=== PATIENT | female | born 2000 | race Caucasian/White ===

== ENCOUNTER → 2021-08-27 | Outpatient (CLI) | payer BC ==
[2021-08-27 09:13] LABS: Potassium 3.9 mmol/L (3.5-5.1)
[2021-08-27 09:22] LABS: Albumin 4.1 g/dL (3.4-5.0); BUN/Creatinine Ratio 10.1; Bilirubin, Total 0.6 mg/dL (0.2-1.0); Calcium 9.7 mg/dL (8.5-10.1)
[2021-08-27 09:49] LABS: Basophils # (auto) 0.1 10 ^3/uL (0-0.2); Basophils % (auto) 0.6 % (0.0-2.0); Eosinophils # (auto) 0.2 10 ^3/uL (0-0.8); Hematocrit 43.6 % (36.0-46.0); Hemoglobin 14.9 g/dL (12.2-16.2); Lymphocytes # (auto) 2.3 10 ^3/uL (0.4-5.4); Mean Corpuscular Hemoglobin 28.9 pg (28.0-32.0); Mean Corpuscular Hgb Conc. 34.3 g/dL (32.0-36.0); Mean Corpuscular Volume 84.4 fL (80.0-100.0); Monocytes # (auto) 0.7 10 ^3/uL (0-1.3); Monocytes % (auto) 6.7 % (0.0-12.0); Neutrophils # (auto) 6.8 10 ^3/uL (1.6-8.6); Neutrophils % (auto) 67.7 % (37.0-80.0); Nucleated Red Blood Cells % 0.1 %; Red Blood Cells 5.17 10^6/uL (4.0-5.20); White Blood Cell 10.1 10^3/uL (4.4-10.8)
== END | disposition home or self-care (01) ==
LOC: LAB 08:08
PROVIDERS: ATTEND Student in an Organized Health Care Education/Training Program
DX: Z00.00 Encounter for general adult medical examination without abnormal findings (principal); F33.2 Major depressive disorder, recurrent severe without psychotic features; F60.3 Borderline personality disorder
CPT/HCPCS: 36415; 80053; 80061; 80178; 83036; 84443; 85025

== ENCOUNTER → 2021-10-23 | Outpatient (CLI) | payer BC ==
[2021-10-23 13:22] LABS: Potassium 3.8 mmol/L (3.5-5.1)
[2021-10-23 13:29] LABS: Albumin 4.4 g/dL (3.4-5.0); Bilirubin, Total 0.6 mg/dL (0.2-1.0); Calcium 9.9 mg/dL (8.5-10.1); Total Protein 9.3 g/dL (6.4-8.2)
== END | disposition home or self-care (01) ==
LOC: LAB 12:34
PROVIDERS: ATTEND Student in an Organized Health Care Education/Training Program
DX: E03.9 Hypothyroidism, unspecified (principal)
CPT/HCPCS: 36415; 80053; 84439; 84443

== ENCOUNTER 2024-05-03 05:19 | Inpatient (IN) | payer BC, MEDICAID ==
[~2024-05-03] VITALS: Ht 160 cm; Wt 84.8 kg
[2024-05-03 06:34] LABS: Basophils # (auto) 0 10 ^3/uL (0-0.2); Basophils % (auto) 0.2 % (0.0-2.0); Eosinophils # (auto) 0 10 ^3/uL (0-0.8); Eosinophils % (auto) 0.2 % (0.0-7.0); Hematocrit 44.5 % (36.0-46.0); Hemoglobin 14.9 g/dL (12.2-16.2); Lymphocytes # (auto) 1.3 10 ^3/uL (0.4-5.4); Mean Corpuscular Hemoglobin 29.1 pg (28.0-32.0); Mean Corpuscular Hgb Conc. 33.4 g/dL (32.0-36.0); Monocytes # (auto) 0.7 10 ^3/uL (0-1.3); Monocytes % (auto) 6.2 % (0.0-12.0); Neutrophils # (auto) 9.6 10 ^3/uL (1.6-8.6); Neutrophils % (auto) 82.4 % (37.0-80.0); Platelet Count (auto) 321 10^3/uL (140-450); Red Blood Cells 5.11 10^6/uL (4.0-5.20); Red Cell Distribution Width 13.6 % (11.8-14.3); White Blood Cell 11.7 10^3/uL (4.4-10.8)
--- NOTE | 2024-05-03 06:39 | ECG ---
[facility] Test Date: 2024-05-03 Test Time: 05:30:54 Pat Name: CYNTHIA CARLTON Department: ED Room: 0295 Gender: F Sane Nurse: VALERI : 2000 Requested By: EMERGENCY EMERGENCY Order Number: [id number] Reading MD: Kamari Thomas Measurements Intervals [place] Rate: 81 P: 61 WA: 133 QRS: 34 QRSD: 88 T: 6 QT: 371 QTc: 431 Interpretive Statements Sinus rhythm Electronically Signed On 05-12-2024 12:53:58 PST by Kamari Thomas Please click the below link to view image of tracing.
[2024-05-03 06:48] LABS: Alanine Aminotransferase 787 U/L (7-40); Albumin 4.8 g/dL (3.2-4.8); Alkaline Phosphatase 135 U/L (46-116); Anion Gap 8 (5-15); Aspartate Aminotransferase 405 U/L (13-40); BUN/Creatinine Ratio 14.8 (10.0-20.0); Blood Urea Nitrogen 12 mg/dL (9-23); Calcium 10.4 mg/dL (8.7-10.4); Carbon Dioxide 26 mmol/L (20-31); Chloride 104 mmol/L (98-107); Glucose 101 mg/dL (74-106); Magnesium 2.2 mg/dL (1.6-2.6); Potassium 4.1 mmol/L (3.5-5.1); Sodium 138 mmol/L (136-145)
[2024-05-03 06:49] LABS: Bilirubin, Total 2.5 mg/dL (0.2-1.0); Total Protein 8.1 g/dL (5.7-8.2)
--- NOTE | 2024-05-03 07:15 | ED.PDOC ---
History of Present Illness HPI Comments 23 y/o F, with a Hx of anxiety, depression, obesity, and nicotine vape, is BIBA for c/o abdominal pain, nausea, vomiting, and hematemesis, today. Patient reports on unprovoked onset of constant abdominal pain with multiple nausea and vomiting episodes for the past 4 days, with 1x episode of hematemesis at 0300, this morning. Patient comments on recent positive test, last night, in addition to her current period being light and pink in coloration after missing her previous prior two periods. Patient reports no additional significant Hx along with any recent stress, sick contact, travel, spoiled food intake, substance use/exposure, injuries, or sexual activity. Patient denies having any diarrhea, blood-streaked stools, urinary symptoms, fever, chills, or other associated symptoms or modifiers at this time. Per EMS report, patient has a blood glucose of 113, with all remaining vitals within normal limits, on scene and was given Zofran en route. Chief Complaint: Abdominal Pain Time Seen by MD: 06:35 Reviewed Notes: Nurses Notes, Milk Bottler Notes, Medications, Allergies Allergies: Uncoded Allergies: ADHESIVES (Allergy, Unknown, 05/03/24) Information Source: Patient, Emergency Med Personnel Mode of Arrival: EMS Severity: Moderate Timing: Days Duration: Since onset Prehospital treatment: 12 Lead EKG, Accucheck (113), Stitch Bonder Machine Operator Helper, Treatment (Zofran ) Past Medical History PAST MEDICAL HISTORY: Anxiety, Depression Past Medical History (Other): obesity Surgical History: Denies all surgeries BIOLOGICAL PLANT OPERATOR History: Denies all BIOLOGICAL PLANT OPERATOR Hx Family History Family History: Unknown Social History Smoker: Other (nicotine vape) Alcohol: Denies ETOH Use Drugs: Denies Drug Use Lives In: Home Constitutional: denies: chills, diaphoresis, fatigue, fever, malaise, sweats, weakness, others EENTM: denies: blurred vision, double vision, ear bleeding, ear discharge, ear drainage, ear pain, ear ringing, eye pain, eye redness, hearing loss, mouth pain, mouth swelling, nasal discharge, nose bleeding, nose congestion, nose pain, photophobia, tearing, throat pain, throat swelling, voice changes, others Respiratory: denies: cough, hemoptysis, orthopnea, SOB at rest, shortness of breath, SOB with excertion, stridor, wheezing, others Cardiovascular: denies: chest pain, dizzy spells, diaphoresis, Dyspnea on exertion, edema, irregular heart beat, left arm pain, lightheadedness, palpitations, PND, syncope, others Gastrointestinal: reports: abdominal pain, hematemesis, nausea, vomiting; denies: abdomen distended, blood streaked bowels, constipated, diarrhea, dysphagia, difficulty swallowing, melena, poor appetite, poor fluid intake, rectal bleeding, rectal pain, others Genitourinary: denies: abnormal vagina bleeding, burning, dyspareunia, dysuria, flank pain, frequency, hematuria, incontinence, pain, , vagina disch arge, urgency, others Neurological: denies: dizziness, fainting, headache, left sided numbness, left sided weakness, numbness, paresthesia, pre-existing deficit, right sided numbness, right sided weakness, seizure, speech problems, tingling, tremors, weakness, others Musculoskeletal: denies: back pain, gout, joint pain, joint swelling, muscle pain, muscle stiffness, neck pain, others Integumetry: denies: bruises, change in color, change in hair/nails, dryness, laceration, lesions, lumps, rash, wounds, others Allergic/Immunocompromised: denies: Difficulty Healing, Frequent Infections, Hives, Itching, others Hematologic/Lymphatic: denies: anemia, blood clots, easy bleeding, easy bruising, swollen glands, others Endocrine: denies: excessive hunger, excessive sweating, excessive thirst, excessive urination, flushing, intolerance to cold, intolerance to heat, unexplained weight gain, unexplained weight loss, others Psychiatric: denies: anxiety, bipolar disorder, depression, hopeless, panic disorder, schizophrenia, sleepless, suicidal, others All Other Systems: Reviewed and Negative Physical Exam General Appearance: Moderate Distress HEENT: Normal ENT Inspection, Pharynx Normal, TMs Normal Neck: Full Range of Motion, Non-Tender, Normal, Normal Inspection Respiratory: Chest Non-Tender, Lungs Clear, No Accessory Muscle Use, No Respiratory Distress, Normal Breath Sounds Cardiovascular: No Edema, No JVD, No Murmur, No Gallop, Normal Peripheral Pulses, Regular Rate/Rhythm Breast Exam: Deferred Gastrointestinal: Diffuse, Soft Genitalia: Deferred Pelvic: Deferred Rectal: Deferred Extremities: No calf tenderness, Normal capillary refill, Normal inspection, Normal range of motion, Non-tender, No pedal edema Musculoskeletal : Apperance: Normal Neurologic: Alert, arboriculture instructor II-XII nml as Tested, No Motor Deficits, Normal Affect, Normal Mood, No Sensory Deficits Cerebellar Function: NOT DONE Reflexes: NOT DONE Skin: Dry, Normal Color, Warm Peripheral Pulses: 3+ Radial (R), 3+ Radial (L) Lymphatic: No Adenopathy Was a procedure done? Was a procedure done?: No EKG EKG : Pulse Rate (adult): 81 [place]: Normal Cardiac Rhythm: NSR Block: None Hypertrophy: None ST: Normal Differential Dx Considerations may include: , gastritis, gastroenteritis, appendicitis, diverticulitis, cholecystitis, cholelithiasis, nephrolithiasis, PUD, spoiled food, UTI, acute abdomen X-Ray, Labs, Meds, VS Vital Signs Date Time Temp Pulse Resp B/P (MAP) Pulse Ox O2 Delivery O2 Flow Rate FiO2 05/03/24 11:38 97.5 78 16 112/70 (84) 97 97.5 05/03/24 10:16 97.5 77 16 106/51 (69) 97 97.5 05/03/24 09:14 97.5 85 16 103/67 (79) 97 97.5 05/03/24 09:14 85 16 103/67 05/03/24 07:42 94 16 111/76 05/03/24 07:30 98.7 94 16 111/76 (88) 96 98.7 05/03/24 07:30 94 16 96 Room Air* 0 21 05/03/24 07:15 81 05/03/24 05:31 98.3 81 24 124/83 (97) 98 05/03/24 05:30 81 Lab Test 05/03/24 08:04 05/03/24 07:02 05/03/24 06:02 Range/Units Lactic Acid Level 1.0 0.4-2.0 mmol/L Troponin I High Sensitivity < 3 L < 3 L </=34 ng/L White Blood Count 11.7 H 4.4-10.8 10^3/uL Red Blood Count 5.11 4.0-5.20 10^6/uL Hemoglobin 14.9 12.2-16.2 g/dL Hematocrit 44.5 36.0-46.0 % Mean Corpuscular Volume 87.0 80.0-100.0 fL Mean Corpuscular Hemoglobin 29.1 28.0-32.0 pg Mean Corpuscular Hemoglobin Concent 33.4 32.0-36.0 g/dL Red Cell Distribution Width 13.6 11.8-14.3 % Platelet Count 321 140-450 10^3/uL Mean Platelet Volume 8.2 6.9-10.8 fL Neutrophils (%) (Auto) 82.4 H 37.0-80.0 % Lymphocytes (%) (Auto) 11.0 10.0-50.0 % Monocytes (%) (Auto) 6.2 0.0-12.0 % Eosinophils (%) (Auto) 0.2 0.0-7.0 % Basophils (%) (Auto) 0.2 0.0-2.0 % Neutrophils # (Auto) 9.6 H 1.6-8.6 10 ^3/uL Lymphocytes # (Auto) 1.3 0.4-5.4 10 ^3/uL Monocytes # (Auto) 0.7 0-1.3 10 ^3/uL Eosinophils # (Auto) 0 0-0.8 10 ^3/uL Basophils # (Auto) 0 0-0.2 10 ^3/uL Nucleated Red Blood Cells 0.0 % Sodium Level 138 136-145 mmol/L Potassium Level 4.1 3.5-5.1 mmol/L Chloride Level 104 98-107 mmol/L Carbon Dioxide Level 26 20-31 mmol/L Anion Gap 8 5-15 Blood Urea Nitrogen 12 9-23 mg/dL Creatinine 0.81 0.550-1.02 mg/dL Glomerular Filtration Rate Calc 105 >90 mL/min BUN/Creatinine Ratio 14.8 10.0-20.0 Serum Glucose 101 74-106 mg/dL Calcium Level 10.4 8.7-10.4 mg/dL Magnesium Level 2.2 1.6-2.6 mg/dL Total Bilirubin 2.5 H 0.2-1.0 mg/dL Aspartate Amino Transferase (AST) 405 H 13-40 U/L Alanine Aminotransferase (ALT) 787 H 7-40 U/L Alkaline Phosphatase 135 H 46-116 U/L Total Protein 8.1 5.7-8.2 g/dL Albumin 4.8 3.2-4.8 g/dL Lipase > 3500 H 12-53 U/L Beta HCG, Quantitative 0.4 L 1.5-4.2 mIU/mL Current Medications Medications (Trade) Dose Ordered Sig/Izzy Route Start Time Stop Time Status Last Admin Ceftriaxone Sodium 50 ml @ 100 mls/hr ONCE ONCE IV 05/03/24 07:30 05/03/24 07:59 DC 05/03/24 07:42 Metronidazole 100 ml @ 100 mls/hr ONCE ONCE IV 05/03/24 07:30 05/03/24 08:29 DC 05/03/24 08:11 Morphine Sulfate 4 mg ONCE ONCE IV 05/03/24 07:30 05/03/24 07:31 DC 05/03/24 07:42 Ondansetron HCl (Zofran) 4 mg ONCE ONCE IV 05/03/24 07:30 05/03/24 07:31 DC 05/03/24 07:42 Sodium Chloride 1,000 ml @ 1,000 mls/hr Q1H ONCE IV 05/03/24 07:30 05/03/24 08:29 DC 05/03/24 07:41 Sodium Chloride 1,000 ml @ 150 mls/hr Q6H40M ONCE IV 05/03/24 07:30 05/03/24 14:09 05/03/24 09:08 [place] [id number] Ph: [phone] DIAGNOSTIC IMAGING Diagnostic Imaging Report : [id number] Signed PATIENT: CYNTHIA CARLTON ACCT: [id number] UNIT: [id number] : 2000 LOC: ER ROOM / BED: / AGE / SEX: 23 / F ADM STATUS: REG ER SERVICE 4 ORDERING PHYSICIAN: BRAULIO FARNSWORTH MD PROCEDURE(s): GBUS - GALLBLADDER REASON: sharon ORDER NUMBER(s): [id number], ACCESSION NUMBER(s): [id number] ULTRASOUND ABDOMEN LIMITED INDICATION: Abdominal pain.. TECHNIQUE: Multiple real-time sonographic images of the abdomen were obtained. COMPARISON: None FINDINGS: The visualized liver parenchyma appears diffusely echogenic consistent with steatosis. . The liver measures 17.2 cm. No discrete hepatic lesion or intrahepatic biliary ductal dilatation is identified. There are multiple small subcentimeter mobile gallstones within the gallbladder. Is no significant gallbladder wall thickening or pericholecystic fluid. The common duct measures 7 mm. There is no obvious choledocholithiasis. The right kidney measures 10.5 cm length. No sonographic evidence of nephrolithiasis or hydronephrosis. Pancreas is obscured by bowel gas. IMPRESSION: 1. Hepatic steatosis. 2. Multiple small mobile gallstones in the gallbladder. 3. Mildly dilated common bile duct. There is no sonographic evidence of choledocholithiasis. HS:Y ATED BY: ERIK SMART MD DICTATED DATE/TIME: 05/03/24807 SIGNED BY: ERIK SMART MD SIGNED DATE/TIME: 05/03/24807 CC: Patient alert. Complaining of abdominal pain. Vitals stable. Answering all questions. Vomiting. Beta quant normal. Liver profile elevated. Acute cholecystitis. WBC elevated. Hemoglobin within normal limits. Establish intravenous access. Was given fluids. Was given Rocephin. Was given Flagyl. Explained to the patient. Continue cardiac monitoring. Time of 1ST Reevaluation: 07:05 Reevaluation 1ST: Unchanged Patient Education/Counseling: Diagnosis, Treatment Family Education/Counseling: No Family Present Departure 1 Departure Time of Disposition: 07:27 Impression: Primary Impression: Acute cholecystitis Disposition: ADMITTED INPATIENT Admit to: Med Surg Condition: Guarded Critical Care Note Critical Care Time?: Yes (45 min-critical care time only) Stability Stability form required: No Heart Score Heart Score: Heart Score Response (Comments) Value History N/A 0 EKG N/A 0 Age N/A 0 Risk Factors N/A 0 Troponin N/A 0 Total 0 I personally scribed for BRAULIO FARNSWORTH MD ([email or web address]) on 05/03/24 at 07:15. Electronically submitted by Chalo Allen ([email or web address]). I personally scribed for BRAULIO FARNSWORTH MD ([email or web address]) on 05/03/24 at 07:17. Electronically submitted by Chalo Allen ([email or web address]). I personally scribed for BRAULIO FARNSWORTH MD ([email or web address]) on 05/03/24 at 08:24. Electronically submitted by Chalo Allen ([email or web address]). I personally scribed for BRAULIO FARNSWORTH MD ([email or web address]) on 05/03/24 at 11:51. Electronically submitted by Chalo Allen ([email or web address]). BRAULIO FARNSWORTH MD May 03, 2024 07:15
[2024-05-03 07:30] VITALS: PULSE 94; RESP 16; O2SAT 96
[2024-05-03] MEDS: SODIUM CHLORIDE 0.9% 1,000 ML IV ONE ×2 (07:41→09:08)
[2024-05-03] MEDS: MORPHINE SULFATE 4 MG/ML SYR/VIAL IV ONE (07:42)
[2024-05-03] MEDS: ONDANSETRON HCL 4 MG/2 ML VIAL IV ONE (07:42)
[2024-05-03] MEDS: cefTRIAXone 1GM/50ML D5W 50 ML IV ONE (07:42)
--- NOTE | 2024-05-03 08:09 | DVH ---
ULTRASOUND ABDOMEN LIMITED INDICATION: Abdominal pain.. TECHNIQUE: Multiple real-time sonographic images of the abdomen were obtained. COMPARISON: None FINDINGS: The visualized liver parenchyma appears diffusely echogenic consistent with steatosis. . The liver measures 17.2 cm. No discrete hepatic lesion or intrahepatic biliary ductal dilatation is ident ified. There are multiple small subcentimeter mobile gallstones within the gallbladder. Is no significant ga llbladder wall thickening or pericholecystic fluid. The common duct measures 7 mm. There is no obvio us choledocholithiasis. The right kidney measures 10.5 cm length. No sonographic evidence of nephrolithiasis or hydronephro sis. Pancreas is obscured by bowel gas. IMPRESSION: 1. Hepatic steatosis. 2. Multiple small mobile gallstones in the gallbladder. 3. Mildly dilated common bile duct. There is no sonographic evidence of choledocholithiasis. HS:Y
[2024-05-03] MEDS: metroNIDAZOLE 500MG/100ML 100 ML IV ONE (08:11)
[2024-05-03 12:17] VITALS: BP 112/70; PULSE 78; RESP 16; TEMP 98.7; O2SAT 78
[2024-05-03] MEDS ORDERED: ACETAMINOPHEN 325 MG TAB PO PRN (15:15)
[2024-05-03] MEDS ORDERED: MORPHINE SULFATE INJ 2 MG/ml SYRG IV PRN ×2 (15:15→15:45)
[2024-05-03] MEDS ORDERED: DOCUSATE SOD 100 MG CAP PO PRN (15:15)
--- NOTE | 2024-05-03 15:34 | DVHHP2 ---
History of Present Illness Reason for Visit: Acute pancreatitis History of Present Illness The patient is a 23-year-old female morbidly obese with past medical history of anxiety and depression who presented to [facility] ED with complaint of acute abdominal pain. Patient reports symptoms progressively get worse with nausea, episodes of vomiting, hematemesis, getting worse today that prompted this visit. Patient reports on recent positive test, last night, in addition to her current period being light and pink in coloration after missing her previous prior two periods. Patient was seen and evaluated in the ED, laboratory data shows WBC 11.7, platelets 321, sodium 138, potassium 4.1, BUN 12, creatinine 0.81, glucose 101, troponin 3, total bilirubin 2.5, AST 405, ALT 787, lipase > 12021, blood pressure 112/70, heart rate 78, temperature 98.7 F, O2 saturation 97% on room air. Gallbladder ultrasound revealing hepatic steatosis, multiple small mobile gallstones in the gallbladder. MRCP revealing cholelithiasis; mild intrahepatic and extrahepatic biliary dilatation is nonspecific, no choledocholithiasis, correlate with serum bilirubin. Patient was started on IV antibiotic regimen Rocephin, please see medication orders section in the computer. On my assessment, patient denies chest pain, no headache, no dizziness, no shortness of breath, no abdominal pain, nausea or vomiting at this moment, no diarrhea, no fever, no chills. No other modifying factor or other associated signs and symptoms noted. Patient was admitted for further evaluation and medical management. Past Medical History Anxiety, Depression, Obesity Past Surgical History Denies all surgeries Family History Reviewed, noncontributory to the management of this case. Past Social History The patient lives at home, denies smoking, alcohol or illicit drugs abuse. Review of Systems Constitutional: No: Fever, Chills, Sweats, Weakness, Malaise, Other Eyes: No: Pain, Vision change, Conjunctivae inflammation, Eyelid inflammation, Other, Redness ENT: No: Ear pain, Ear discharge, Nose pain, Nose discharge, Nose congestion, Mouth pain, Mouth swelling, Throat pain, Throat swelling, Other Respiratory: No: Cough, Dry, Shortness of breath, SOB with excertion, Wheezing, Hemoptysis, Pleuritic Pain, Sputum, Wheezing, Other Cardiovascular: No: Chest Pain, Palpitations, Orthopnea, Paroxysmal Noc. Dyspnea, Edema, Lt Headedness, Other Gastrointestinal: Nausea, Vomiting, Abdominal Pain, Other (Hematemesis); No: Diarrhea, Constipation, Melena, Hematochezia Genitourinary: No Dysuria, No Frequency, No Incontinence, No Hematuria, No Retention, No Other Musculoskeletal: No: other, neck pain, shoulder pain, arm pain, back pain, hand pain, leg pain, foot pain Skin: No: Rash, Lesions, Jaundice, Bruising, Other Neurological: No: Weakness, Numbness, Incoordination, Change in speech, Confusion, Seizures, Other Allergies: Uncoded Allergies: ADHESIVES (Allergy, Unknown, 05/03/24) Medications Current Medications Medications Dose Ordered Sig/Izzy Route Start Time Stop Time Status Last Admin Dose Admin Metronidazole 100 ml @ 100 mls/hr Q8HR IV 05/03/24 22:00 UNV Ceftriaxone Sodium 50 ml @ 100 mls/hr DAILY@09 IV 05/04/24 09:00 UNV Acetaminophen/ Hydrocodone Bitart 1 tab Q4HP PRN PO 05/03/24 15:15 UNV Ondansetron HCl 4 mg Q4HP PRN IV 05/03/24 15:15 UNV Docusate Sodium 100 mg BIDPRN PRN PO 05/03/24 15:15 UNV Morphine Sulfate 2 mg Q4HPRN PRN IV 05/03/24 15:15 UNV Ibuprofen 600 mg Q6HP PRN PO 05/03/24 15:15 UNV Exam Vital Signs Vital Signs Date Time Temp Pulse Resp B/P (MAP) Pulse Ox O2 Delivery O2 Flow Rate FiO2 05/03/24 15:28 97.5 84 17 100/69 (79) 95 97.5 05/03/24 07:30 Room Air* 0 21 General Appearance: Alert, Oriented X3, Cooperative, No acute distress HEENT: Atraumatic, PERRLA, EOMI, Mucous membr. moist/pink Respiratory: Clear to auscultation, Normal air movement Cardiovascular: Regular rate, Normal S1, Normal S2, No murmurs Abdominal: Normal bowel sounds, Soft, No hepatospenomegaly, No masses, Other (Reports tenderness) Extremities: No clubbing, No cyanosis, No edema, Normal pulses, No tenderness/swelling Skin: No rashes, No breakdown, No significant lesion Neuro: Normal gait, Normal speech, Strength at 5/5 X4 ext, Normal tone, Sensation intact, Cranial nerves 3-12 NL, Reflexes 2+ Psych/Mental Status: Mental status NL, Mood NL Labs/Xrays Labs Test 05/03/24 08:04 05/03/24 07:02 05/03/24 06:02 Range/Units Lactic Acid Level 1.0 0.4-2.0 mmol/L Troponin I High Sensitivity < 3 L </=34 ng/L White Blood Count 11.7 H 4.4-10.8 10^3/uL Red Blood Count 5.11 4.0-5.20 10^6/uL Hemoglobin 14.9 12.2-16.2 g/dL Hematocrit 44.5 36.0-46.0 % Mean Corpuscular Volume 87.0 80.0-100.0 fL Mean Corpuscular Hemoglobin 29.1 28.0-32.0 pg Mean Corpuscular Hemoglobin Concent 33.4 32.0-36.0 g/dL Red Cell Distribution Width 13.6 11.8-14.3 % Platelet Count 321 140-450 10^3/uL Mean Platelet Volume 8.2 6.9-10.8 fL Neutrophils (%) (Auto) 82.4 H 37.0-80.0 % Lymphocytes (%) (Auto) 11.0 10.0-50.0 % Monocytes (%) (Auto) 6.2 0.0-12.0 % Eosinophils (%) (Auto) 0.2 0.0-7.0 % Basophils (%) (Auto) 0.2 0.0-2.0 % Neutrophils # (Auto) 9.6 H 1.6-8.6 10 ^3/uL Lymphocytes # (Auto) 1.3 0.4-5.4 10 ^3/uL Monocytes # (Auto) 0.7 0-1.3 10 ^3/uL Eosinophils # (Auto) 0 0-0.8 10 ^3/uL Basophils # (Auto) 0 0-0.2 10 ^3/uL Nucleated Red Blood Cells 0.0 % Sodium Level 138 136-145 mmol/L Potassium Level 4.1 3.5-5.1 mmol/L Chloride Level 104 98-107 mmol/L Carbon Dioxide Level 26 20-31 mmol/L Anion Gap 8 5-15 Blood Urea Nitrogen 12 9-23 mg/dL Creatinine 0.81 0.550-1.02 mg/dL Glomerular Filtration Rate Calc 105 >90 mL/min BUN/Creatinine Ratio 14.8 10.0-20.0 Serum Glucose 101 74-106 mg/dL Calcium Level 10.4 8.7-10.4 mg/dL Magnesium Level 2.2 1.6-2.6 mg/dL Total Bilirubin 2.5 H 0.2-1.0 mg/dL Aspartate Amino Transferase (AST) 405 H 13-40 U/L Alanine Aminotransferase (ALT) 787 H 7-40 U/L Alkaline Phosphatase 135 H 46-116 U/L Total Protein 8.1 5.7-8.2 g/dL Albumin 4.8 3.2-4.8 g/dL Lipase > 3500 H 12-53 U/L Beta HCG, Quantitative 0.4 L 1.5-4.2 mIU/mL PATIENT: CYNTHIA CARLTON ACCT: [id number] UNIT: [id number] : 2000 LOC: ER ROOM / BED: / AGE / SEX: 23 / F ADM STATUS: REG ER SERVICE 0725 ORDERING PHYSICIAN: BRAULIO FARNSWORTH MD PROCEDURE(s): GBUS - GALLBLADDER REASON: sharon ORDER NUMBER(s): [id number], ACCESSION NUMBER(s): [id number] ULTRASOUND ABDOMEN LIMITED INDICATION: Abdominal pain.. TECHNIQUE: Multiple real-time sonographic images of the abdomen were obtained. COMPARISON: None FINDINGS: The visualized liver parenchyma appears diffusely echogenic consistent with steatosis. The liver measures 17.2 cm. No discrete hepatic lesion or intrahepatic biliary ductal dilatation is identified. There are multiple small subcentimeter mobile gallstones within the gallbladder. Is no significant gallbladder wall thickening or pericholecystic fluid. The common duct measures 7 mm. There is no obvious choledocholithiasis. The right kidney measures 10.5 cm length. No sonographic evidence of nephrolithiasis or hydronephrosis. Pancreas is obscured by bowel gas. IMPRESSION: 1. Hepatic steatosis. 2. Multiple small mobile gallstones in the gallbladder. 3. Mildly dilated common bile duct. There is no sonographic evidence of choledocholithiasis. ORDERING PHYSICIAN: JOSEF BOUCHER PROCEDURE(s): MRCP - MRCP MRI REASON: CHOLELITHASIS WITH CBD DILATION ORDER NUMBER(s): [id number], ACCESSION NUMBER(s): [id number] MRI Abdomen, without IV Contrast Exam Date: 05/03/2024 03:44 PM Comparison: None History: CHOLELITHASIS WITH CBD DILATION Technique: Multisequence multiplanar MRI images were obtained of the abomen. MRCP including 3D SPACE, Radial 3D slabs and SPACE 3D MIP images. Findings: Liver: The liver is normal in size without focal lesions. Normal liver contour. Spleen: Unremarkable. Pancreas: The pancreas is normal in appearance without focal lesions. Gallbladder and ducts: Cholelithiasis noted without secondary findings of cholecystitis or biliary obstruction. Common bile duct is mildly dilated measuring up to 8 mm. Mild intrahepatic biliary dilation. The pancreatic duct is within normal limits. Adrenal glands: Unremarkable. Kidneys: Normal enhancement without suspicious lesions or hydronephrosis. Visualized bowel: Grossly unremarkable. Vasculature: Unremarkable. Lymphadenopathy: No evidence for lymphadenopathy. Ascites: Absent. Musculoskeletal: Bone marrow signal is normal. IMPRESSION: 1. Cholelithiasis. Mild intrahepatic and extrahepatic biliary dilation is nonspecific. No choledocholithiasis. Correlate with serum bilirubin. Assessment/Plan Assessment/Plan Cholelithiasis Acute abdominal pain Acute pancreatitis Elevated liver enzymes Leukocytosis, unspecified Intractable nausea and vomiting Plan 1. Admit to med surge unit 2. Breathing treatment 3. Pain control management 4. IV antibiotic management 5. Management of fluids and electrolytes 6. Consultation for GI/hospitalist 7. Diagnostic test gallbladder ultrasound 8. DVT prophylaxis on SCDs 9. Repeat labs CBC, CMP in a.m. 10. Continue with current medical management 11. Treatment plan discussed with patient and RN. Patient verbalized understanding. Plan discussed with: Patient, Other (RN) My Orders Orders - LUANA GARSIA DNP Procedure Category Date Status Time Metronidazole PHA 05/03/24 Logged 500mg/100ml (Flagyl 22:00 Ceftriaxone 1gm/50ml PHA 05/04/24 Logged D5w (Rocephin) 09:00 * Gi Dvh Equipment Monitor Phototypesetting CONS 05/03/24 Transmitted 15:12 Allergies RACHEL 05/03/24 In Process 15:12 Code Status CODE 05/03/24 Transmitted 15:12 Oxygen Per Hour RT 11/12/24 Transmitted 15:12 Hydrocodone-Acet PHA 05/03/24 Logged 5/325mg Tab ([place] 15:15 Ondansetron Hcl PHA 05/03/24 Logged (Zofran) 15:15 Docusate Sodium PHA 05/03/24 Logged Capsule (Colace 15:15 Complete Blood Count LAB 05/04/24 Verified 04:00 Comprehensive LAB 05/04/24 Verified Metabolic Panel 04:00 Condition: Serious RACHEL 05/03/24 In Process 15:12 Clear Liq Diet DIET 05/03/24 Transmitted Dinner Bedrest With Bathroom [facility] 05/03/24 In Process Privileg 15:12 Morphine Sulfate PHA 05/03/24 Logged Injection 15:15 Ibuprofen Tablet PHA 05/03/24 Logged (Motrin Tablet) 15:15 Problem List: (1) Cholelithiasis (2) Acute abdominal pain (3) Leukocytosis, unspecified (4) Acute pancreatitis (5) Elevated liver enzymes (6) Intractable nausea and vomiting Date of Service: May 03, 2024 Billing Provider: LUANA GARSIA DNP Common Visit Codes: 02930-HXPNOGS INP/OBS CARE (HIGH) LUANA GARSIA DNP May 03, 2024 15:34
[2024-05-03] MEDS ORDERED: NITROGLYCERIN 0.4 MG SL TAB SL PRN (15:45)
--- NOTE | 2024-05-03 16:44 | DVH ---
MRI Abdomen, without IV Contrast Exam Date: 05/03/2024 03:44 PM Comparison: None History: CHOLELITHASIS WITH CBD DILATION Technique: Multisequence multiplanar MRI images were obtained of the abomen. MRCP including 3D SPACE, Radial 3D slabs and SPACE 3D MIP images. Findings: Liver: The liver is normal in size without focal lesions. Normal liver contour. Spleen: Unremarkable. Pancreas: The pancreas is normal in appearance without focal lesions. Gallbladder and ducts: Cholelithiasis noted without secondary findings of cholecystitis or biliary ob struction. Common bile duct is mildly dilated measuring up to 8 mm. Mild intrahepatic biliary dilati on. The pancreatic duct is within normal limits. Adrenal glands: Unremarkable. Kidneys: Normal enhancement without suspicious lesions or hydronephrosis. Visualized bowel: Grossly unremarkable. Vasculature: Unremarkable. Lymphadenopathy: No evidence for lymphadenopathy. Ascites: Absent. Musculoskeletal: Bone marrow signal is normal. IMPRESSION: 1. Cholelithiasis. Mild intrahepatic and extrahepatic biliary dilation is nonspecific. No choledochol ithiasis. Correlate with serum bilirubin.. HS:Erich
[2024-05-03 17:25] LABS: Urine Bacteria FEW /hpf (None Seen); Urine Blood 1+ /uL (Negative); Urine Clarity Turbid (Clear); Urine Color Dark-Yellow (Yellow); Urine Protein, UAD TRACE (Negative); Urine Specific Gravity 1.029 (1.001-1.035); Urine Urobilinogen 2 mg/dL (Negative); Urine WBC 8 /hpf (0 - 5); Urine pH 6.5 (5.0-9.0)
[2024-05-03] MEDS: HYDROcodone-ACET 5/325MG TAB PO PRN (18:53)
[2024-05-03 20:16] VITALS: PULSE 98; RESP 16; O2SAT 98
[2024-05-03] MEDS: ONDANSETRON HCL 4 MG/2 ML VIAL IV PRN (21:48)
[2024-05-03] MEDS: metroNIDAZOLE 500MG/100ML 100 ML IV SCH (22:24)
[2024-05-03 23:00] VITALS: BP 112/73; PULSE 79; RESP 20; TEMP 97.7; O2SAT 98
[2024-05-04] VITALS (7 sets, daily range): BP systolic 90–121; BP diastolic 39–74; PULSE 67–101; RESP 18–20; TEMP 97.4–98.5; O2SAT 94–100
[2024-05-04 07:34] LABS: Basophils # (auto) 0 10 ^3/uL (0-0.2); Basophils % (auto) 0.3 % (0.0-2.0); Eosinophils # (auto) 0.3 10 ^3/uL (0-0.8); Eosinophils % (auto) 3.5 % (0.0-7.0); Hematocrit 40.8 % (36.0-46.0); Hemoglobin 13.9 g/dL (12.2-16.2); Lymphocytes # (auto) 1.6 10 ^3/uL (0.4-5.4); Lymphocytes % (auto) 22.1 % (10.0-50.0); Mean Corpuscular Hemoglobin 29.7 pg (28.0-32.0); Mean Corpuscular Volume 87.6 fL (80.0-100.0); Monocytes # (auto) 0.5 10 ^3/uL (0-1.3); Monocytes % (auto) 6.9 % (0.0-12.0); Neutrophils % (auto) 67.2 % (37.0-80.0); Nucleated Red Blood Cells % 0.1 %; Platelet Count (auto) 241 10^3/uL (140-450); Red Blood Cells 4.66 10^6/uL (4.0-5.20); Red Cell Distribution Width 13.7 % (11.8-14.3); White Blood Cell 7.5 10^3/uL (4.4-10.8)
[2024-05-04 07:42] LABS: Amphetamine Screen, Urine Neg (NEGATIVE); Barbiturate Scree,Urine Neg (NEGATIVE); Benzodiazephine Screen, Urine Neg (NEGATIVE); Cannabinoid Screen, Urine Neg (NEGATIVE); Cocaine Screen, Urine Neg (NEGATIVE); Opiate Scree,Urine Pos (NEGATIVE); Phencyclidine Screen, Urine Neg (NEGATIVE)
[2024-05-04 07:45] LABS: Alanine Aminotransferase 481 U/L (7-40); Alkaline Phosphatase 111 U/L (46-116); Calcium 9.4 mg/dL (8.7-10.4); Carbon Dioxide 20 mmol/L (20-31); Chloride 109 mmol/L (98-107); Glucose 81 mg/dL (74-106); LDL Cholesterol 76 mg/dL (< 100); Potassium 4.1 mmol/L (3.5-5.1); Triglycerides 93 mg/dL (< 150)
[2024-05-04 07:46] LABS: Albumin 4.2 g/dL (3.2-4.8); Anion Gap 9 (5-15); Aspartate Aminotransferase 144 U/L (13-40); BUN/Creatinine Ratio 9.8 (10.0-20.0); Bilirubin, Total 1.7 mg/dL (0.2-1.0); Blood Urea Nitrogen 6 mg/dL (9-23); Cholesterol 121 mg/dL (< 200); HDL Cholesterol 28 mg/dL (40-59); Sodium 138 mmol/L (136-145); Total Protein 7.4 g/dL (5.7-8.2)
[2024-05-04] MEDS: cefTRIAXone 1GM/50ML D5W 50 ML IV SCH (09:13)
--- NOTE | 2024-05-04 09:56 | DVHINCON2 ---
Date of service: May 04, 2024 Referring Physician Vince Wei Reason for Consultation Acute pancreatitis History of Present Illness The patient is a 23-year-old female morbidly obese with past medical history of anxiety and depression who presented to [facility] ED with complaint of acute abdominal pain. Patient reports symptoms progressively get worse with nausea, episodes of vomiting, hematemesis, getting worse today that prompted this visit. Patient reports on recent positive test, last night, in addition to her current period being light and pink in coloration after missing her previous prior two periods. Patient was seen and evaluated in the ED, laboratory data shows WBC 11.7, platelets 321, sodium 138, potassium 4.1, BUN 12, creatinine 0.81, glucose 101, troponin 3, total bilirubin 2.5, AST 405, ALT 787, lipase > 18327, blood pressure 112/70, heart rate 78, temperature 98.7 F, O2 saturation 97% on room air. Gallbladder ultrasound revealing hepatic steatosis, multiple small mobile gallstones in the gallbladder. MRCP revealing cholelithiasis; mild intrahepatic and extrahepatic biliary dilatation is nonspecific, no choledocholithiasis, correlate with serum bilirubin. Patient was started on IV antibiotic regimen Rocephin, Patient was seen at bedside and was resting comfortably. Her abdominal pain was improving and does no nausea vomiting at this time Past Medical History Past Medical History Anxiety, Depression, Obesity Past Surgical History Past Surgical History Denies all surgeries Family History: FH: skin cancer G8 FATHER Allergies: Uncoded Allergies: ADHESIVES (Allergy, Unknown, 05/03/24) Current Medications Current Medications Medications (Trade) Dose Ordered Sig/Izzy Route PRN Reason Start Time Stop Time Status Last Admin Metronidazole 100 ml @ 100 mls/hr Q8HR IV 05/03/24 22:00 05/04/24 05:23 Ceftriaxone Sodium 50 ml @ 100 mls/hr DAILY@09 IV 05/04/24 09:00 05/04/24 09:13 Acetaminophen/ Hydrocodone Bitart ([place] 5/325MG Tab) 1 tab Q4HP PRN PO MODERATE PAIN (4-6 PAIN SCALE) 05/03/24 15:15 05/03/24 18:53 Ondansetron HCl (Zofran) 4 mg Q4HP PRN IV NAUSEA / VOMITING 05/03/24 15:15 05/03/24 21:48 Docusate Sodium (Colace Capsule) 100 mg BIDPRN PRN PO FOR CONSTIPATION 05/03/24 15:15 Acetaminophen (Tylenol Tablet) 650 mg Q6HP PRN PO PAIN SCALE 1-3 OR TEMP>100.4 05/03/24 15:15 05/03/24 15:16 DC Morphine Sulfate 2 mg Q4HPRN PRN IV SEVERE PAIN (7-10 PAIN SCALE) 05/03/24 15:15 Ibuprofen (Motrin Tablet) 600 mg Q6HP PRN PO PAIN SCALE 1-3 OR TEMP>100.4 05/03/24 15:15 Nitroglycerin (Ntrostat Sublingual) 0.4 mg Q5MINP PRN SL FOR CHEST PAIN 05/03/24 15:45 Morphine Sulfate 2 mg Q30M PRN IV FOR CHEST PAIN 05/03/24 15:45 Lactated Ringer's 1,000 ml @ 125 mls/hr Q8H IV 05/04/24 08:45 Vital Signs Vital Signs Date Time Temp Pulse Resp B/P (MAP) Pulse Ox O2 Delivery O2 Flow Rate FiO2 05/04/24 09:04 97.4 77 19 96/50 (65) 98 97.4 05/03/24 23:00 Room Air* 0 21 Physical Exam General Appearance: Alert, Oriented X3, Cooperative, No acute distress HEENT: Atraumatic, PERRLA, EOMI, Mucous membr. moist/pink Respiratory: Clear to auscultation, Normal air movement Cardiovascular: Regular rate, Normal S1, Normal S2, No murmurs Abdominal: Normal bowel sounds, Soft, No hepatospenomegaly, No masses, Other (Reports tenderness) Extremities: No clubbing, No cyanosis, No edema, Normal pulses, No tenderness/swelling Skin: No rashes, No breakdown, No significant lesion Neuro: Normal gait, Normal speech, Strength at 5/5 X4 ext, Normal tone, Sensation intact, Cranial nerves 3-12 NL, Reflexes 2+ Psych/Mental Status: Mental status NL, Mood NL Labs/Diagnostic Data Labs Test 05/04/24 06:54 05/03/24 16:47 05/03/24 08:04 05/03/24 07:02 Range/Units White Blood Count 7.5 # 4.4-10.8 10^3/uL Red Blood Count 4.66 4.0-5.20 10^6/uL Hemoglobin 13.9 12.2-16.2 g/dL Hematocrit 40.8 36.0-46.0 % Mean Corpuscular Volume 87.6 80.0-100.0 fL Mean Corpuscular Hemoglobin 29.7 28.0-32.0 pg Mean Corpuscular Hemoglobin Concent 34.0 32.0-36.0 g/dL Red Cell Distribution Width 13.7 11.8-14.3 % Platelet Count 241 140-450 10^3/uL Mean Platelet Volume 8.0 6.9-10.8 fL Neutrophils (%) (Auto) 67.2 37.0-80.0 % Lymphocytes (%) (Auto) 22.1 10.0-50.0 % Monocytes (%) (Auto) 6.9 0.0-12.0 % Eosinophils (%) (Auto) 3.5 0.0-7.0 % Basophils (%) (Auto) 0.3 0.0-2.0 % Neutrophils # (Auto) 5.0 1.6-8.6 10 ^3/uL Lymphocytes # (Auto) 1.6 0.4-5.4 10 ^3/uL Monocytes # (Auto) 0.5 0-1.3 10 ^3/uL Eosinophils # (Auto) 0.3 0-0.8 10 ^3/uL Basophils # (Auto) 0 0-0.2 10 ^3/uL Nucleated Red Blood Cells 0.1 % Sodium Level 138 136-145 mmol/L Potassium Level 4.1 3.5-5.1 mmol/L Chloride Level 109 H 98-107 mmol/L Carbon Dioxide Level 20 20-31 mmol/L Anion Gap 9 5-15 Blood Urea Nitrogen 6 L 9-23 mg/dL Creatinine 0.61 0.550-1.02 mg/dL Glomerular Filtration Rate Calc 130 >90 mL/min BUN/Creatinine Ratio 9.8 L 10.0-20.0 Serum Glucose 81 74-106 mg/dL Calcium Level 9.4 8.7-10.4 mg/dL Total Bilirubin 1.7 H 0.2-1.0 mg/dL Aspartate Amino Transferase (AST) 144 H 13-40 U/L Alanine Aminotransferase (ALT) 481 H 7-40 U/L Alkaline Phosphatase 111 46-116 U/L Total Protein 7.4 5.7-8.2 g/dL Albumin 4.2 3.2-4.8 g/dL Triglycerides Level 93 < 150 mg/dL Cholesterol Level 121 < 200 mg/dL LDL Cholesterol 76 < 100 mg/dL HDL Cholesterol 28 L 40-59 mg/dL Lipase 961 H 12-53 U/L Urine Color Dark-yellow Yellow Urine Clarity Turbid H Clear Urine pH 6.5 5.0-9.0 Urine Specific [place] 1.029 1.001-1.035 Urine Protein Trace H Negative Urine Ketones 3+ H Negative Urine Blood 1+ H Negative /uL Urine Nitrite Negative Negative Urine Bilirubin 1+ H Negative Urine Urobilinogen 2 H Negative mg/dL Urine Leukocyte Esterase Negative Negative /uL Urine RBC 7 0 - 4 /hpf Urine WBC 8 0 - 5 /hpf Urine Squamous Epithelial Cells Mod <5 /hpf Urine Bacteria Few H None Seen /hpf Urine Glucose Normal Normal mg/dL Urine Opiates Screen Pos NEGATIVE Urine Fentanyl Screen Neg NEGATIVE Urine Barbiturates Screen Neg NEGATIVE Urine Phencyclidine Screen Neg NEGATIVE Urine Amphetamines Screen Neg NEGATIVE Urine Benzodiazepines Screen Neg NEGATIVE Urine Cocaine Screen Neg NEGATIVE Urine Cannabinoids Screen Neg NEGATIVE Lactic Acid Level 1.0 0.4-2.0 mmol/L Troponin I High Sensitivity < 3 L </=34 ng/L Test 05/03/24 06:02 Range/Units Magnesium Level 2.2 1.6-2.6 mg/dL Beta HCG, Quantitative 0.4 L 1.5-4.2 mIU/mL Microbiology Date/Time Source Procedure Growth Status 05/03/24 08:04 Blood Blood Culture - Preliminary NO GROWTH AFTER 24 HOURS OF INCUBATION. Resulted MRCP IMPRESSION: 1. Cholelithiasis. Mild 8mm intrahepatic and extrahepatic biliary dilation is nonspecific. No choledocholithiasis. Correlate with serum bilirubin.. Problems(with codes): (1) Gallstone pancreatitis (2) Cholelithiasis (3) Acute pancreatitis (4) Acute abdominal pain (5) Leukocytosis, unspecified (6) Intractable nausea and vomiting (7) Elevated liver enzymes (8) Acute cholecystitis Plan/Recommendation Plan Her leukocytosis is improving and lipase levels are trending down Her liver enzymes are improving Patient likely had a passage of a small CBD stone leading to gallstone pancreatitis which is improving Continue to monitor labs IV fluid hydration IV antibiotics Surgical consult to discuss elective cholecystectomy Clear liquid diet Plan discussed with: Patient, Other (Nurse) ANALIA WEBBER MD May 04, 2024 09:55
[2024-05-04] MEDS: LACTATED RINGER'S 1,000 ML IV SCH (10:57)
--- NOTE | 2024-05-04 18:24 | DVHPNRES ---
Progress Note Date Seen: May 04, 2024 Resident Creating Document: FÉLIX RIOS RESIDENT Medical Necessity Reason Pt with a Central, PICC or Fol: No Subjective Review of Systems Patient is 23 years old female with past medical history of obesity, anxiety, bipolar disorder, borderline personality disorder, PTSD, ADHD, insomnia came with a complaint of abdominal pain started 4 days ago. Starting having upper abdominal pain that started 5 days ago, 10, 9/10, aggravated with food, relieved with empty stomach, no radiation. Patient also endorsed nausea and vomiting 7 times at the 1st day, and followed couple of times other days. Vomiting was mostly food and watery content, denied any blood. Patient also complained of dysuria but no urgency or hesitancy. Denied any chest pain, shortness of breath, constipation or diarrhea, fever, cough, palpitation, dysarthria, change in vision, rash. Initial lab workup revealed> lipase 3500, WBC 11.7, serum bilirubin 2.5, AST for 0 5, ALT 787, alkaline phosphatase 135. Ultrasound Of the gallbladder revealed-Hepatic steatosis. Multiple small mobile gallstones in the gallbladder. Mildly dilated common bile duct. There is no sonographic evidence of choledocholithiasis. MRCP revealed- Cholelithiasis. Mild intrahepatic and extrahepatic biliary dilation is nonspecific. No choledocholithiasis. Correlate with serum bilirubin. PMH-obesity, anxiety, bipolar disorder, borderline personality disorder, PTSD, ADHD, insomnia PSH- none Allergy- smokes vape, alcoholic intake only very few occasion last time to calculus 3 months before. Denies drugs. Personal History/ Social History- Patient was seen today at the bedside. Patient nausea after drinking liquid. Cardiovascular- deny acute chest , dysarthria. or cough or palpitation Respiratory- denies cough or short of breath or wheezing Gastrointestinal- denies any rectal bleeding, nausea or vomiting Musculoskeletal-denies acute joint swelling or tenderness or redness Neurological- denies acute dysarthria, dysphagia, change in vision Psychiatry- denies depression or SI or HI Skin- denies acute rash or purpura Patient was seen today for clinical evaluation. Less than chart reviewed. Patient complained of mild nausea after drinking liquid diet. We will check tenderness present on physical examination. Patient was seen by Gastroenterology. Recommendation reviewed and appreciated. Gastroenterology recommended for IV hydration, IV antibiotics, to consult surgery for further evaluation and care. Objective vital signs Vital Sign Date Time Temp Pulse Resp B/P (MAP) Pulse Ox O2 Delivery O2 Flow Rate FiO2 05/04/24 17:12 98.3 67 18 90/39 (56) 98 98.3 05/04/24 08:00 Room Air* 0 21 Total Intake and Output 05/03/24 05/03/24 05/04/24 15:00 23:00 07:00 Intake Total 1900 ml Balance 1900 ml medications Current Medications Medications Dose Ordered Sig/Izzy Route Start Time Stop Time Status Last Admin Dose Admin Metronidazole 100 ml @ 100 mls/hr Q8HR IV 05/03/24 22:00 05/04/24 15:54 100 MLS/HR Ceftriaxone Sodium 50 ml @ 100 mls/hr DAILY@09 IV 05/04/24 09:00 05/04/24 09:13 100 MLS/HR Acetaminophen/ Hydrocodone Bitart 1 tab Q4HP PRN PO 05/03/24 15:15 05/03/24 18:53 1 TAB Ondansetron HCl 4 mg Q4HP PRN IV 05/03/24 15:15 05/03/24 21:48 4 MG Docusate Sodium 100 mg BIDPRN PRN PO 05/03/24 15:15 Morphine Sulfate 2 mg Q4HPRN PRN IV 05/03/24 15:15 Ibuprofen 600 mg Q6HP PRN PO 05/03/24 15:15 Nitroglycerin 0.4 mg Q5MINP PRN SL 05/03/24 15:45 Morphine Sulfate 2 mg Q30M PRN IV 05/03/24 15:45 Lactated Ringer's 1,000 ml @ 125 mls/hr Q8H IV 05/04/24 08:45 05/04/24 10:57 125 MLS/HR Famotidine 20 mg Q12HR IV 05/04/24 22:00 Examination General examination- awake, alert, oriented, conversant HEENT- PEERLA, no acute nasal discharge Cardiovascular- S1-S2 audible, rate and rhythm regular, no murmur Respiratory- CTAB, no wheeze or rhonchi Gastrointestinal-abdomen tender++, bowel sound+. Nondistended Musculoskeletal-no acute joint swelling or tenderness or redness# Lower extremity- no leg edema Neurological- cranial nerves intact, no acute dysarthria or dysphagia Psychiatry- denies depression or SI or HI Skin- no acute rash or purpura laboratory and microbiology Laboratory Tests 05/04/24 06:54 Test 05/04/24 06:54 Range/Units Serum Glucose 81 74-106 mg/dL Microbiology Date/Time Source Procedure Growth Status 05/03/24 08:04 Blood Blood Culture - Preliminary NO GROWTH AFTER 24 HOURS OF INCUBATION. Resulted Problem List/Assessment/Plan Problem List/Assessment/Plan # acute abdominal pain likely due to acute gallstone pancreatitis,, cholelithiasis -lipase -Ultrasound Of the gallbladder revealed-Hepatic steatosis. Multiple small mobile gallstones in the gallbladder. Mildly dilated common bile duct. There is no sonographic evidence of choledocholithiasis. - MRCP revealed- Cholelithiasis. Mild intrahepatic and extrahepatic biliary dilation is nonspecific. No choledocholithiasis. Correlate with serum bilirubin. -continue IV fluid lactate Ringer solution 125 mL/hour -NPO until further order -continue pain medication as prescribed -monitor CBC, CMP, magnesium, lipase - # intractable nausea and vomiting likely due to acute gallstone pancreatitis,, cholelithiasis --Ultrasound Of the gallbladder revealed-Hepatic steatosis. Multiple small mobile gallstones in the gallbladder. Mildly dilated common bile duct. There is no sonographic evidence of choledocholithiasis. - MRCP revealed- Cholelithiasis. Mild intrahepatic and extrahepatic biliary dilation is nonspecific. No choledocholithiasis. Correlate with serum bilirubin. -continue IV fluid lactate Ringer solution 125 mL/hour -NPO until further order -continue pain medication as prescribed -monitor CBC, CMP, magnesium, lipase #acute gallstone pancreatitis,, --Ultrasound Of the gallbladder revealed-Hepatic steatosis. Multiple small mobile gallstones in the gallbladder. Mildly dilated common bile duct. There is no sonographic evidence of choledocholithiasis. - MRCP revealed- Cholelithiasis. Mild intrahepatic and extrahepatic biliary dilation is nonspecific. No choledocholithiasis. Correlate with serum bilirubin. -continue IV fluid lactate Ringer solution 125 mL/hour -NPO until further order -continue pain medication as prescribed -monitor CBC, CMP, magnesium, lipase # cholelithiasis --Ultrasound Of the gallbladder revealed-Hepatic steatosis. Multiple small mobile gallstones in the gallbladder. Mildly dilated common bile duct. There is no sonographic evidence of choledocholithiasis. - MRCP revealed- Cholelithiasis. Mild intrahepatic and extrahepatic biliary dilation is nonspecific. No choledocholithiasis. Correlate with serum bilirubin. -ordered surgery consult for further evaluation and care -# dilated intrahepatic and extrahepatic bile duct, nonspecific, no choledocholithiasis -Ultrasound Of the gallbladder revealed-Hepatic steatosis. Multiple small mobile gallstones in the gallbladder. Mildly dilated common bile duct. There is no sonographic evidence of choledocholithiasis. - MRCP revealed- Cholelithiasis. Mild intrahepatic and extrahepatic biliary dilation is nonspecific. No choledocholithiasis. Correlate with serum bilirubin. -continue IV fluid lactate Ringer solution 125 mL/hour -NPO until further order -continue pain medication as prescribed -monitor CBC, CMP, magnesium, lipase # hyperbilirubinemia -monitor LFT # transaminitis -monitor liver function test, BNP, CBC #obesity, -BMI 34.4 -patient counseled about weight reduction, low-fat diet, physical activity # history of anxiety, bipolar disorder, borderline personality disorder, PTSD, ADHD, insomnia -follow up outpatient Goals of care/advance care planning; FULL CODE; discussed with the patient PUD prophylaxis: Famotidine DVT prophylaxis: Plan discussed with Dr. Mtz,,, nursing staff, patient Total time spent on patient evaluation, chart review, assessment and plan, discussion discussion >20 minutes Plan discussed with: Patient Plan discussed with: Patient, Other (RN) My Orders My Orders Orders - FÉLIX RIOS Procedure Category Date Status Time Famotidine Injection PHA 05/04/24 In Process (Pepcid Injection) 22:00 Npo (Nothing By DIET 05/04/24 Transmitted Mouth) Diet Lunch Date of Service: May 04, 2024 Billing Provider: SHUBHAM TMZ MD Common Visit Codes: [id number] INP/OBS CARE(HIGH) FÉLIX RIOS May 04, 2024 18:24 SHUBHAM MTZ MD May 07, 2024 11:29
[2024-05-04] MEDS: FAMOTIDINE (10MG/ML) 2ML VL IV SCH (21:52)
[2024-05-04] MEDS: IBUPROFEN 600 MG TAB PO PRN (21:53)
[2024-05-05] VITALS (8 sets, daily range): BP systolic 103–123; BP diastolic 64–80; PULSE 59–105; RESP 16–20; TEMP 97.4–98.3; O2SAT 94–99
[2024-05-05] MEDS ORDERED: PANTOPRAZOLE 40 MG TAB PO SCH (06:00)
[2024-05-05 07:45] LABS: Alanine Aminotransferase 337 U/L (7-40); Albumin 4.2 g/dL (3.2-4.8); Alkaline Phosphatase 103 U/L (46-116); Anion Gap 12 (5-15); Aspartate Aminotransferase 66 U/L (13-40); Blood Urea Nitrogen 9 mg/dL (9-23); Calcium 9.5 mg/dL (8.7-10.4); Carbon Dioxide 19 mmol/L (20-31); Chloride 107 mmol/L (98-107); Glucose 71 mg/dL (74-106); Lipase 145 U/L (12-53); Potassium 4.3 mmol/L (3.5-5.1); Sodium 138 mmol/L (136-145)
--- NOTE | 2024-05-05 09:20 | DVHINCON2 ---
Date of service: May 05, 2024 Family History: FH: skin cancer G8 FATHER Allergies: Uncoded Allergies: ADHESIVES (Allergy, Unknown, 05/03/24) Current Medications Current Medications Medications (Trade) Dose Ordered Sig/Izzy Route PRN Reason Start Time Stop Time Status Last Admin Pantoprazole Sodium (Protonix Tablet) 40 mg DAILY@0600 PO 05/05/24 06:00 05/04/24 11:43 DC Famotidine (Pepcid Injection) 20 mg Q12HR IV 05/04/24 22:00 05/04/24 21:52 Vital Signs Vital Signs Date Time Temp Pulse Resp B/P (MAP) Pulse Ox O2 Delivery O2 Flow Rate FiO2 05/05/24 05:00 97.6 85 20 103/67 (79) 98 97.6 05/04/24 20:00 Room Air* 0 21 Labs/Diagnostic Data Labs Test 05/05/24 06:47 05/04/24 06:54 05/03/24 16:47 05/03/24 08:04 Range/Units Sodium Level 138 136-145 mmol/L Potassium Level 4.3 3.5-5.1 mmol/L Chloride Level 107 98-107 mmol/L Carbon Dioxide Level 19 L 20-31 mmol/L Anion Gap 12 5-15 Blood Urea Nitrogen 9 9-23 mg/dL Creatinine 0.60 0.550-1.02 mg/dL Glomerular Filtration Rate Calc 130 >90 mL/min BUN/Creatinine Ratio 15.0 10.0-20.0 Serum Glucose 71 L 74-106 mg/dL Calcium Level 9.5 8.7-10.4 mg/dL Total Bilirubin 1.0 0.2-1.0 mg/dL Aspartate Amino Transferase (AST) 66 H 13-40 U/L Alanine Aminotransferase (ALT) 337 H 7-40 U/L Alkaline Phosphatase 103 46-116 U/L Total Protein 7.0 5.7-8.2 g/dL Albumin 4.2 3.2-4.8 g/dL Lipase 145 H 12-53 U/L Eosinophils (%) (Auto) 3.5 0.0-7.0 % Eosinophils # (Auto) 0.3 0-0.8 10 ^3/uL Basophils # (Auto) 0 0-0.2 10 ^3/uL Nucleated Red Blood Cells 0.1 % Triglycerides Level 93 < 150 mg/dL Cholesterol Level 121 < 200 mg/dL LDL Cholesterol 76 < 100 mg/dL HDL Cholesterol 28 L 40-59 mg/dL Urine Color Dark-yellow Yellow Urine Clarity Turbid H Clear Urine pH 6.5 5.0-9.0 Urine Specific [place] 1.029 1.001-1.035 Urine Protein Trace H Negative Urine Ketones 3+ H Negative Urine Blood 1+ H Negative /uL Urine Nitrite Negative Negative Urine Bilirubin 1+ H Negative Urine Urobilinogen 2 H Negative mg/dL Urine Leukocyte Esterase Negative Negative /uL Urine RBC 7 0 - 4 /hpf Urine WBC 8 0 - 5 /hpf Urine Squamous Epithelial Cells Mod <5 /hpf Urine Bacteria Few H None Seen /hpf Urine Glucose Normal Normal mg/dL Urine Opiates Screen Pos NEGATIVE Urine Fentanyl Screen Neg NEGATIVE Urine Barbiturates Screen Neg NEGATIVE Urine Phencyclidine Screen Neg NEGATIVE Urine Amphetamines Screen Neg NEGATIVE Urine Benzodiazepines Screen Neg NEGATIVE Urine Cocaine Screen Neg NEGATIVE Urine Cannabinoids Screen Neg NEGATIVE Lactic Acid Level 1.0 0.4-2.0 mmol/L Test 05/03/24 07:02 05/03/24 06:02 Range/Units Troponin I High Sensitivity < 3 L </=34 ng/L Magnesium Level 2.2 1.6-2.6 mg/dL Beta HCG, Quantitative 0.4 L 1.5-4.2 mIU/mL Microbiology Date/Time Source Procedure Growth Status 05/03/24 08:04 Blood Blood Culture - Preliminary NO GROWTH AFTER 48 HOURS OF INCUBATION. Resulted Assessment BILIARY PANCREATITIS, ABDOMEN TENDER, EXPLAINED PATIENT THE NEED FOR DEFERVESCENCE OF PANCREATITIS PRIOR TO CHOLECYSTECTOMY. SHE SHOULD COME TO MY OFFICE ABOUT THREE WEEKS AFTYER DISCHARGE FROM THE HOSPITAL. REMAIN NPO TILL ABDOMINAL PAIN RESOLVES, GET A CT SCAN OF ABDOMEN PRIOR TO HER OFFICE VISIT. NO INDICATION FOR EMERGENCY SURGICAL INTERVENTION Plan discussed with: Patient YOSELIN ROMANO MD May 05, 2024 09:20
[2024-05-05 09:35] LABS: Basophils # (auto) 0.1 10 ^3/uL (0-0.2); Basophils % (auto) 0.7 % (0.0-2.0); Eosinophils # (auto) 0.2 10 ^3/uL (0-0.8); Eosinophils % (auto) 2.6 % (0.0-7.0); Hematocrit 43.7 % (36.0-46.0); Hemoglobin 14.4 g/dL (12.2-16.2); Lymphocytes # (auto) 2.1 10 ^3/uL (0.4-5.4); Lymphocytes % (auto) 26.3 % (10.0-50.0); Mean Corpuscular Hemoglobin 28.9 pg (28.0-32.0); Mean Corpuscular Hgb Conc. 32.9 g/dL (32.0-36.0); Mean Corpuscular Volume 87.7 fL (80.0-100.0); Monocytes # (auto) 0.5 10 ^3/uL (0-1.3); Monocytes % (auto) 5.7 % (0.0-12.0); Neutrophils # (auto) 5.2 10 ^3/uL (1.6-8.6); Neutrophils % (auto) 64.7 % (37.0-80.0); Platelet Count (auto) 268 10^3/uL (140-450); Red Blood Cells 4.98 10^6/uL (4.0-5.20); Red Cell Distribution Width 13.7 % (11.8-14.3)
--- NOTE | 2024-05-05 12:39 | DVHPNRES ---
Progress Note Date Seen: May 05, 2024 Resident Creating Document: FÉLIX RIOS RESIDENT Medical Necessity Reason Pt with a Central, PICC or Fol: No Subjective Review of Systems Patient is 23 years old female with past medical history of obesity, anxiety, bipolar disorder, borderline personality disorder, PTSD, ADHD, insomnia came with a complaint of abdominal pain started 4 days ago. Starting having upper abdominal pain that started 5 days ago, 10, 9/10, aggravated with food, relieved with empty stomach, no radiation. Patient also endorsed nausea and vomiting 7 times at the 1st day, and followed couple of times other days. Vomiting was mostly food and watery content, denied any blood. Patient also complained of dysuria but no urgency or hesitancy. Denied any chest pain, shortness of breath, constipation or diarrhea, fever, cough, palpitation, dysarthria, change in vision, rash. Initial lab workup revealed> lipase 3500, WBC 11.7, serum bilirubin 2.5, AST for 0 5, ALT 787, alkaline phosphatase 135. Ultrasound Of the gallbladder revealed-Hepatic steatosis. Multiple small mobile gallstones in the gallbladder. Mildly dilated common bile duct. There is no sonographic evidence of choledocholithiasis. MRCP revealed- Cholelithiasis. Mild intrahepatic and extrahepatic biliary dilation is nonspecific. No choledocholithiasis. Correlate with serum bilirubin. PMH-obesity, anxiety, bipolar disorder, borderline personality disorder, PTSD, ADHD, insomnia PSH- none Allergy- smokes vape, alcoholic intake only very few occasion last time to calculus 3 months before. Denies drugs. Personal History/ Social History- Patient was seen today at the bedside. Patient nausea after drinking liquid. Cardiovascular- deny acute chest , dysarthria. or cough or palpitation Respiratory- denies cough or short of breath or wheezing Gastrointestinal- denies any rectal bleeding, nausea or vomiting Musculoskeletal-denies acute joint swelling or tenderness or redness Neurological- denies acute dysarthria, dysphagia, change in vision Psychiatry- denies depression or SI or HI Skin- denies acute rash or purpura Patient was seen today for clinical evaluation. Labs and chart reviewed. Patient reports feeling better today. Patients lipase was trending down and serum bilirubin, AST, ALT was also trending down. Patient was put on liquid diet, if tolerated well then we will advance the diet.. Vitals stable. Objective vital signs Vital Sign Date Time Temp Pulse Resp B/P (MAP) Pulse Ox O2 Delivery O2 Flow Rate FiO2 05/05/24 09:00 98.3 59 16 104/64 (77) 94 98.3 05/05/24 08:00 Room Air* 0 21 Total Intake and Output 05/04/24 05/04/24 05/05/24 15:00 23:00 07:00 Intake Total 1530 ml 740 ml Output Total 650 ml Balance 1530 ml 90 ml medications Current Medications Medications Dose Ordered Sig/Izzy Route Start Time Stop Time Status Last Admin Dose Admin Acetaminophen/ Hydrocodone Bitart 1 tab Q4HP PRN PO 05/03/24 15:15 05/03/24 18:53 1 TAB Ondansetron HCl 4 mg Q4HP PRN IV 05/03/24 15:15 05/03/24 21:48 4 MG Docusate Sodium 100 mg BIDPRN PRN PO 05/03/24 15:15 Morphine Sulfate 2 mg Q4HPRN PRN IV 05/03/24 15:15 Ibuprofen 600 mg Q6HP PRN PO 05/03/24 15:15 05/04/24 21:53 600 MG Nitroglycerin 0.4 mg Q5MINP PRN SL 05/03/24 15:45 Morphine Sulfate 2 mg Q30M PRN IV 05/03/24 15:45 Lactated Ringer's 1,000 ml @ 125 mls/hr Q8H IV 05/04/24 08:45 05/05/24 03:00 125 MLS/HR Famotidine 20 mg Q12HR IV 05/04/24 22:00 05/05/24 10:04 20 MG Examination General examination- awake, alert, oriented, conversant HEENT- PEERLA, no acute nasal discharge Cardiovascular- S1-S2 audible, rate and rhythm regular, no murmur Respiratory- CTAB, no wheeze or rhonchi Gastrointestinal-abdomen tender++, bowel sound+. Nondistended Musculoskeletal-no acute joint swelling or tenderness or redness# Lower extremity- no leg edema Neurological- cranial nerves intact, no acute dysarthria or dysphagia Psychiatry- denies depression or SI or HI Skin- no acute rash or purpura laboratory and microbiology Laboratory Tests 05/05/24 09:05 05/05/24 06:47 Test 05/05/24 06:47 Range/Units Serum Glucose 71 L 74-106 mg/dL Microbiology Date/Time Source Procedure Growth Status 05/03/24 08:04 Blood Blood Culture - Preliminary NO GROWTH AFTER 48 HOURS OF INCUBATION. Resulted Problem List/Assessment/Plan Problem List/Assessment/Plan # acute abdominal pain likely due to acute gallstone pancreatitis,, cholelithiasis -serum lipase 3500> 961> 145 -lipase -Ultrasound Of the gallbladder revealed-Hepatic steatosis. Multiple small mobile gallstones in the gallbladder. Mildly dilated common bile duct. There is no sonographic evidence of choledocholithiasis. - MRCP revealed- Cholelithiasis. Mild intrahepatic and extrahepatic biliary dilation is nonspecific. No choledocholithiasis. Correlate with serum bilirubin. -continue IV fluid lactate Ringer solution 125 mL/hour -patient was put on liquid diet, if tolerated well then we will advance the diet -continue pain medication as prescribed -monitor CBC, CMP, magnesium, lipase - # intractable nausea and vomiting likely due to acute gallstone pancreatitis,, cholelithiasis --serum lipase 3500> 961> 145 --Ultrasound Of the gallbladder revealed-Hepatic steatosis. Multiple small mobile gallstones in the gallbladder. Mildly dilated common bile duct. There is no sonographic evidence of choledocholithiasis. - MRCP revealed- Cholelithiasis. Mild intrahepatic and extrahepatic biliary dilation is nonspecific. No choledocholithiasis. Correlate with serum bilirubin. -continue IV fluid lactate Ringer solution 125 mL/hour --patient was put on liquid diet, if tolerated well then we will advance the diet -continue pain medication as prescribed -monitor CBC, CMP, magnesium, lipase #acute gallstone pancreatitis,, --serum lipase 3500> 961> 145 --Ultrasound Of the gallbladder revealed-Hepatic steatosis. Multiple small mobile gallstones in the gallbladder. Mildly dilated common bile duct. There is no sonographic evidence of choledocholithiasis. - MRCP revealed- Cholelithiasis. Mild intrahepatic and extrahepatic biliary dilation is nonspecific. No choledocholithiasis. Correlate with serum bilirubin. -continue IV fluid lactate Ringer solution 125 mL/hour --patient was put on liquid diet, if tolerated well then we will advance the diet -continue pain medication as prescribed -monitor CBC, CMP, magnesium, lipase # cholelithiasis --Ultrasound Of the gallbladder revealed-Hepatic steatosis. Multiple small mobile gallstones in the gallbladder. Mildly dilated common bile duct. There is no sonographic evidence of choledocholithiasis. - MRCP revealed- Cholelithiasis. Mild intrahepatic and extrahepatic biliary dilation is nonspecific. No choledocholithiasis. Correlate with serum bilirubin. -ordered surgery consult for further evaluation and care --serum lipase 3500> 961> 145 -# dilated intrahepatic and extrahepatic bile duct, nonspecific, no choledocholithiasis --serum lipase 3500> 961> 145 -Ultrasound Of the gallbladder revealed-Hepatic steatosis. Multiple small mobile gallstones in the gallbladder. Mildly dilated common bile duct. There is no sonographic evidence of choledocholithiasis. - MRCP revealed- Cholelithiasis. Mild intrahepatic and extrahepatic biliary dilation is nonspecific. No choledocholithiasis. Correlate with serum bilirubin. -continue IV fluid lactate Ringer solution 125 mL/hour --patient was put on liquid diet, if tolerated well then we will advance the diet -continue pain medication as prescribed -monitor CBC, CMP, magnesium, lipase # hyperbilirubinemia -monitor LFT # transaminitis -liver enzymes trending down -monitor liver function test, BMP, CBC #obesity, -BMI 34.4 -patient counseled about weight reduction, low-fat diet, physical activity # history of anxiety, bipolar disorder, borderline personality disorder, PTSD, ADHD, insomnia -follow up outpatient Goals of care/advance care planning; FULL CODE; discussed with the patient PUD prophylaxis: Famotidine DVT prophylaxis: Plan discussed with Dr. Mtz,,, nursing staff, patient Total time spent on patient evaluation, chart review, assessment and plan, discussion discussion >20 minutes Plan discussed with: Patient Plan discussed with: Patient, Other (RN) My Orders My Orders Orders - FÉLIX RIOS Procedure Category Date Status Time Full Liq Diet DIET 05/05/24 Transmitted Breakfast Date of Service: May 05, 2024 Billing Provider: SHUBHAM MTZ MD Common Visit Codes: [id number] INP/OBS CARE(HIGH) FÉLIX RIOS May 05, 2024 12:39 SHUBHAM MTZ MD May 07, 2024 11:30
--- NOTE | 2024-05-05 22:27 | DVHPN2 ---
Progress Note - Dictate Date Seen: May 05, 2024 Medical Necessity Reason Pt with a Central, PICC or Fol: No Subjective Patient seen at bedside She is feeling better Liver enzymes and lipase have trended down significantly vital signs Vital Sign Date Time Temp Pulse Resp B/P (MAP) Pulse Ox O2 Delivery O2 Flow Rate FiO2 05/05/24 21:00 98.1 105 18 123/80 (94) 96 98.1 05/05/24 08:00 Room Air* 0 21 Total Intake and Output 05/04/24 05/04/24 05/05/24 15:00 23:00 07:00 Intake Total 1530 ml 740 ml Output Total 650 ml Balance 1530 ml 90 ml medications Current Medications Medications Dose Ordered Sig/Izzy Route Start Time Stop Time Status Last Admin Dose Admin Acetaminophen/ Hydrocodone Bitart 1 tab Q4HP PRN PO 05/03/24 15:15 05/03/24 18:53 1 TAB Ondansetron HCl 4 mg Q4HP PRN IV 05/03/24 15:15 05/03/24 21:48 4 MG Docusate Sodium 100 mg BIDPRN PRN PO 05/03/24 15:15 Morphine Sulfate 2 mg Q4HPRN PRN IV 05/03/24 15:15 Ibuprofen 600 mg Q6HP PRN PO 05/03/24 15:15 05/04/24 21:53 600 MG Nitroglycerin 0.4 mg Q5MINP PRN SL 05/03/24 15:45 Morphine Sulfate 2 mg Q30M PRN IV 05/03/24 15:45 Lactated Ringer's 1,000 ml @ 125 mls/hr Q8H IV 05/04/24 08:45 05/05/24 16:18 125 MLS/HR Famotidine 20 mg Q12HR IV 05/04/24 22:00 05/05/24 22:10 20 MG objective General Appearance: Alert, Oriented X3, Cooperative, No acute distress HEENT: Atraumatic, PERRLA, EOMI, Mucous membr. moist/pink Respiratory: Clear to auscultation, Normal air movement Cardiovascular: Regular rate, Normal S1, Normal S2, No murmurs Abdominal: Normal bowel sounds, Soft, No hepatospenomegaly, No masses, Other (Reports tenderness) Extremities: No clubbing, No cyanosis, No edema, Normal pulses, No tenderness/swelling Skin: No rashes, No breakdown, No significant lesion Neuro: Normal gait, Normal speech, Strength at 5/5 X4 ext, Normal tone, Sensation intact, Cranial nerves 3-12 NL, Reflexes 2+ Psych/Mental Status: Mental status NL, Mood NL laboratory and microbiology Laboratory Tests 05/05/24 09:05 05/05/24 06:47 Test 05/05/24 06:47 Range/Units Serum Glucose 71 L 74-106 mg/dL Problems(with codes): (1) Gallstone pancreatitis (2) Elevated liver enzymes (3) Intractable nausea and vomiting (4) Leukocytosis, unspecified (5) Acute abdominal pain (6) Cholelithiasis (7) Acute cholecystitis (8) Acute pancreatitis Prognosis Plan Surgical consult appreciated He advised outpatient follow up with surgery in 2-3 weeks for elective cholecystectomy Continue to monitor labs Advance diet as tolerated Plan discussed with: Patient ANALIA WEBBER MD May 05, 2024 22:27
[2024-05-06 01:00] VITALS: BP 108/67; PULSE 91; RESP 19; TEMP 97.9; O2SAT 97
[2024-05-06 05:17] VITALS: BP 111/74; PULSE 90; RESP 19; TEMP 98.3; O2SAT 96
[2024-05-06 07:34] LABS: Basophils # (auto) 0.1 10 ^3/uL (0-0.2); Basophils % (auto) 0.6 % (0.0-2.0); Eosinophils # (auto) 0.3 10 ^3/uL (0-0.8); Eosinophils % (auto) 3.2 % (0.0-7.0); Hematocrit 44.4 % (36.0-46.0); Hemoglobin 14.8 g/dL (12.2-16.2); Lymphocytes # (auto) 2.8 10 ^3/uL (0.4-5.4); Lymphocytes % (auto) 31.5 % (10.0-50.0); Mean Corpuscular Hemoglobin 29.4 pg (28.0-32.0); Mean Corpuscular Hgb Conc. 33.4 g/dL (32.0-36.0); Mean Corpuscular Volume 88.1 fL (80.0-100.0); Monocytes # (auto) 0.6 10 ^3/uL (0-1.3); Monocytes % (auto) 6.6 % (0.0-12.0); Neutrophils # (auto) 5.1 10 ^3/uL (1.6-8.6); Neutrophils % (auto) 58.1 % (37.0-80.0); Nucleated Red Blood Cells % 0.2 %; Platelet Count (auto) 289 10^3/uL (140-450); Red Blood Cells 5.04 10^6/uL (4.0-5.20); Red Cell Distribution Width 13.5 % (11.8-14.3); White Blood Cell 8.8 10^3/uL (4.4-10.8)
[2024-05-06 07:42] LABS: Anion Gap 12 (5-15); Carbon Dioxide 23 mmol/L (20-31); Chloride 106 mmol/L (98-107); Potassium 4.4 mmol/L (3.5-5.1); Sodium 141 mmol/L (136-145)
[2024-05-06 07:43] LABS: Calcium 10.3 mg/dL (8.7-10.4)
[2024-05-06 07:48] LABS: BUN/Creatinine Ratio 13.2 (10.0-20.0); Blood Urea Nitrogen 10 mg/dL (9-23); Glucose 104 mg/dL (74-106)
[2024-05-06 08:00] VITALS: RESP 16; O2SAT 96
[2024-05-06 09:00] VITALS: BP 108/75; PULSE 89; RESP 18; TEMP 97.8; O2SAT 97
[2024-05-06 09:46] VITALS: TEMP 36.8
--- NOTE | 2024-05-06 14:43 | DVHDSRES ---
Discharge Summary Date of Admission Resident Creating Document: FÉLIX RIOS RESIDENT May 03, 2024 at 15:32 Date of Discharge: May 06, 2024 Admitting Diagnosis Abdominal pain likely due to pancreatitis Labs/Diagnostic Data: Laboratory Results Test 05/06/24 06:49 05/05/24 06:47 05/04/24 06:54 05/03/24 16:47 White Blood Count 8.8 10^3/uL (4.4-10.8) Red Blood Count 5.04 10^6/uL (4.0-5.20) Hemoglobin 14.8 g/dL (12.2-16.2) Hematocrit 44.4 % (36.0-46.0) Mean Corpuscular Volume 88.1 fL (80.0-100.0) Mean Corpuscular Hemoglobin 29.4 pg (28.0-32.0) Mean Corpuscular Hemoglobin Concent 33.4 g/dL (32.0-36.0) Red Cell Distribution Width 13.5 % (11.8-14.3) Platelet Count 289 10^3/uL (140-450) Mean Platelet Volume 8.4 fL (6.9-10.8) Neutrophils (%) (Auto) 58.1 % (37.0-80.0) Lymphocytes (%) (Auto) 31.5 % (10.0-50.0) Monocytes (%) (Auto) 6.6 % (0.0-12.0) Eosinophils (%) (Auto) 3.2 % (0.0-7.0) Basophils (%) (Auto) 0.6 % (0.0-2.0) Neutrophils # (Auto) 5.1 10 ^3/uL (1.6-8.6) Lymphocytes # (Auto) 2.8 10 ^3/uL (0.4-5.4) Monocytes # (Auto) 0.6 10 ^3/uL (0-1.3) Eosinophils # (Auto) 0.3 10 ^3/uL (0-0.8) Basophils # (Auto) 0.1 10 ^3/uL (0-0.2) Nucleated Red Blood Cells 0.2 % Sodium Level 141 mmol/L (136-145) Potassium Level 4.4 mmol/L (3.5-5.1) Chloride Level 106 mmol/L (98-107) Carbon Dioxide Level 23 mmol/L (20-31) Anion Gap 12 (5-15) Blood Urea Nitrogen 10 mg/dL (9-23) Creatinine 0.76 mg/dL (0.550-1.02) Glomerular Filtration Rate Calc 114 mL/min (>90) BUN/Creatinine Ratio 13.2 (10.0-20.0) Serum Glucose 104 mg/dL (74-106) Calcium Level 10.3 mg/dL (8.7-10.4) Total Bilirubin 1.0 mg/dL (0.2-1.0) Aspartate Amino Transferase (AST) 66 U/L (13-40) Alanine Aminotransferase (ALT) 337 U/L (7-40) Alkaline Phosphatase 103 U/L (46-116) Total Protein 7.0 g/dL (5.7-8.2) Albumin 4.2 g/dL (3.2-4.8) Lipase 145 U/L (12-53) Triglycerides Level 93 mg/dL (< 150) Cholesterol Level 121 mg/dL (< 200) LDL Cholesterol 76 mg/dL (< 100) HDL Cholesterol 28 mg/dL (40-59) Urine Color Dark-yellow (Yellow) Urine Clarity Turbid (Clear) Urine pH 6.5 (5.0-9.0) Urine Specific [place] 1.029 (1.001-1.035) Urine Protein Trace (Negative) Urine Ketones 3+ (Negative) Urine Blood 1+ /uL (Negative) Urine Nitrite Negative (Negative) Urine Bilirubin 1+ (Negative) Urine Urobilinogen 2 mg/dL (Negative) Urine Leukocyte Esterase Negative /uL (Negative) Urine RBC 7 /hpf (0 - 4) Urine WBC 8 /hpf (0 - 5) Urine Squamous Epithelial Cells Mod /hpf (<5) Urine Bacteria Few /hpf (None Seen) Urine Glucose Normal mg/dL (Normal) Urine Opiates Screen Pos (NEGATIVE) Urine Fentanyl Screen Neg (NEGATIVE) Urine Barbiturates Screen Neg (NEGATIVE) Urine Phencyclidine Screen Neg (NEGATIVE) Urine Amphetamines Screen Neg (NEGATIVE) Urine Benzodiazepines Screen Neg (NEGATIVE) Urine Cocaine Screen Neg (NEGATIVE) Urine Cannabinoids Screen Neg (NEGATIVE) Test 05/03/24 08:04 05/03/24 07:02 05/03/24 06:02 Lactic Acid Level 1.0 mmol/L (0.4-2.0) Troponin I High Sensitivity < 3 ng/L (</=34) Magnesium Level 2.2 mg/dL (1.6-2.6) Beta HCG, Quantitative 0.4 mIU/mL (1.5-4.2) Other Laboratory Tests 05/06/24 06:49 Brief Hx & Hospital Course: Patient is 23 years old female with past medical history of obesity, anxiety, bipolar disorder, borderline personality disorder, PTSD, ADHD, insomnia came with a complaint of abdominal pain started 4 days ago. Starting having upper abdominal pain that started 5 days ago, 10, 10, aggravated with food, relieved with empty stomach, no radiation. Patient also endorsed nausea and vomiting 7 times at the 1st day, and followed couple of times other days. Vomiting was mostly food and watery content, denied any blood. Patient also complained of dysuria but no urgency or hesitancy. Denied any chest pain, shortness of breath, constipation or diarrhea, fever, cough, palpitation, dysarthria, change in vision, rash. Initial lab workup revealed> lipase 3500, WBC 11.7, serum bilirubin 2.5, AST for 0 5, ALT 787, alkaline phosphatase 135. Ultrasound Of the gallbladder revealed-Hepatic steatosis. Multiple small mobile gallstones in the gallbladder. Mildly dilated common bile duct. There is no sonographic evidence of choledocholithiasis. MRCP revealed- Cholelithiasis. Mild intrahepatic and extrahepatic biliary dilation is nonspecific. No choledocholithiasis. Correlate with serum bilirubin. During hospital course patient was treated conservatively with IV fluid. Patient was seen by Gastroenterology and surgery. Surgery recommended nonsurgical treatment at this moment. Patient's symptom improved clinically. Patient is being discharged home in hemodynamically stable condition. Patient was advised to follow up with the primary care physician in 1 week follow up with the surgery in 2-3 weeks for elective cholecystectomy. Patient was advised to get a CT scan of the abdomen prior to surgery follow up per surgery recommendation.. Patient was hemodynamically stable on discharge. PMH-obesity, anxiety, bipolar disorder, borderline personality disorder, PTSD, ADHD, insomnia PSH- none Allergy- smokes vape, alcoholic intake only very few occasion last time to calculus 3 months before. Denies drugs. Personal History/ Social History- Patient was seen today at the bedside. Patient nausea after drinking liquid. Cardiovascular- deny acute chest , dysarthria. or cough or palpitation Respiratory- denies cough or short of breath or wheezing Gastrointestinal- denies any rectal bleeding, nausea or vomiting Musculoskeletal-denies acute joint swelling or tenderness or redness Neurological- denies acute dysarthria, dysphagia, change in vision Psychiatry- denies depression or SI or HI Skin- denies acute rash or purpura General examination- awake, alert, oriented, conversant HEENT- PEERLA, no acute nasal discharge Cardiovascular- S1-S2 audible, rate and rhythm regular, no murmur Respiratory- CTAB, no wheeze or rhonchi Gastrointestinal-abdomen tender++, bowel sound+. Nondistended Musculoskeletal-no acute joint swelling or tenderness or redness# Lower extremity- no leg edema Neurological- cranial nerves intact, no acute dysarthria or dysphagia Psychiatry- denies depression or SI or HI Skin- no acute rash or purpura Operations or Procedures PATIENT: CYNTHIA CARLTON ACCT: [id number] UNIT: [id number] : 2000 LOC: ER ROOM / BED: / AGE / SEX: 23 / F ADM STATUS: REG ER SERVICE 0725 ORDERING PHYSICIAN: BRAULIO FARNSWORTH MD PROCEDURE(s): GBUS - GALLBLADDER REASON: sharon ORDER NUMBER(s): [id number], ACCESSION NUMBER(s): [id number] ULTRASOUND ABDOMEN LIMITED INDICATION: Abdominal pain.. TECHNIQUE: Multiple real-time sonographic images of the abdomen were obtained. COMPARISON: None FINDINGS: The visualized liver parenchyma appears diffusely echogenic consistent with steatosis. . The liver measures 17.2 cm. No discrete hepatic lesion or intrahepatic biliary ductal dilatation is identified. There are multiple small subcentimeter mobile gallstones within the gallbladder. Is no significant gallbladder wall thickening or pericholecystic fluid. The common duct measures 7 mm. There is no obvious choledocholithiasis. The right kidney measures 10.5 cm length. No sonographic evidence of nephrolithiasis or hydronephrosis. Pancreas is obscured by bowel gas. IMPRESSION: 1. Hepatic steatosis. 2. Multiple small mobile gallstones in the gallbladder. 3. Mildly dilated common bile duct. There is no sonographic evidence of choledocholithiasis. HS:Y ATED BY: ERIK SMART MD DICTATED DATE/TIME: 05/03/24 08 SIGNED BY: ERIK SMART MD SIGNED DATE/TIME: 05/03/24807 CC: DIAGNOSTIC IMAGING Diagnostic Imaging Report : [id number] Signed PATIENT: CYNTHIA CARLTON ACCT: [id number] UNIT: [id number] : 2000 LOC: TELE ROOM / BED: [address] [place] [address] AGE / SEX: 23 / F ADM STATUS: ADM IN SERVICE 1003 ORDERING PHYSICIAN: JOSEF BOUCHER PROCEDURE(s): MRCP - MRCP MRI REASON: CHOLELITHASIS WITH CBD DILATION ORDER NUMBER(s): [id number], ACCESSION NUMBER(s): [id number] MRI Abdomen, without IV Contrast Exam Date: 05/03/2024 03:44 PM Comparison: None History: CHOLELITHASIS WITH CBD DILATION Technique: Multisequence multiplanar MRI images were obtained of the abomen. MRCP including 3D SPACE, Radial 3D slabs and SPACE 3D MIP images. Findings: Liver: The liver is normal in size without focal lesions. Normal liver contour. Spleen: Unremarkable. Pancreas: The pancreas is normal in appearance without focal lesions. Gallbladder and ducts: Cholelithiasis noted without secondary findings of cholecystitis or biliary obstruction. Common bile duct is mildly dilated measuring up to 8 mm. Mild intrahepatic biliary dilation. The pancreatic duct is within normal limits. Adrenal glands: Unremarkable. Kidneys: Normal enhancement without suspicious lesions or hydronephrosis. Visualized bowel: Grossly unremarkable. Vasculature: Unremarkable. Lymphadenopathy: No evidence for lymphadenopathy. Ascites: Absent. Musculoskeletal: Bone marrow signal is normal. IMPRESSION: 1. Cholelithiasis. Mild intrahepatic and extrahepatic biliary dilation is nonspecific. No choledocholithiasis. Correlate with serum bilirubin.. HS:Y. ATED BY: HARLEY SAMUEL MD DICTATED DATE/TIME: 05/03/241641 SIGNED BY: HARLEY SAMUEL MD SIGNED DATE/TIME: 05/03/24 164 CC: Condition at Discharge: Stable Final Diagnosis/Problems List Acute abdominal pain likely due to acute gallstone pancreatitis,, cholelithiasis Acute gall stone pancreatitis # intractable nausea and vomiting likely due to acute gallstone pancreatitis,, cholelithiasis dilated intrahepatic and extrahepatic bile duct, nonspecific, no choledocholithiasis Hyperbilirubinemia Transaminitis Obesity Cholelithiasis Discharge Disposition: Home Discharge Instruct/Medications Diet: Regular Activity: No Restrictions, As Tolerated Follow Up/Referral: Please follow up with the primary care physician in 1 week Discharge Statement: "Patient was advised to return to the ER or call 911 if any headaches, dizziness, shortness of breath, chest pain, abdominal pain, bleeding, fevers, or worsening of medical condition. Patient was counseled about treatment plan, medications, possible side effects, patientverbalized understanding. All questions were answered to the best of my ability. This discharge took greater then 30 minutes in planning, reviewing documentation, counseling the patient, and discussing with other team members." ASSESSMENT ASSESSMENT Assessment Acute pancreatitis Date of Service: May 06, 2024 Billing Provider: SHUBHAM CARRERA MD Common Visit Codes: [id number] DISCH DAY >30min FÉLIX RIOS RESIDENT May 06, 2024 14:43 SHUBHAM CARRERA MD May 07, 2024 11:30
== END 2024-05-06 10:25 | disposition home or self-care (01) | DRG 439 ==
LOC: EDBD 05:19 → ER 05:19 → TELE 15:32 → TELE-WESTW 23:00 → WEST WING 05-04 14:05
PROVIDERS: ADMIT Internal Medicine Geriatric Medicine; ATTEND Internal Medicine Geriatric Medicine
DX: K85.10 Biliary acute pancreatitis without necrosis or infection (principal); K80.00 Calculus of gallbladder with acute cholecystitis without obstruction; F41.9 Anxiety disorder, unspecified; F17.200 Nicotine dependence, unspecified, uncomplicated; F31.9 Bipolar disorder, unspecified; F43.10 Post-traumatic stress disorder, unspecified; F90.9 Attention-deficit hyperactivity disorder, unspecified type; G47.00 Insomnia, unspecified; E80.6 Other disorders of bilirubin metabolism; E66.9 Obesity, unspecified; Z80.8 Family history of malignant neoplasm of other organs or systems; Z68.34 Body mass index [BMI] 34.0-34.9, adult
CPT/HCPCS: 36415; 74181; 76705; 80048; 80053; 80061; 80307; 81001; 83605; 83690; 83735; 84484; 84702; 85025; 87040; 93005; 96365; 96375; 99291; G0378; J2405; J3490

== ENCOUNTER 2024-05-21 23:21 | Emergency (ER) | payer BC, MEDICAID ==
[~2024-05-21] VITALS: Ht 160 cm; Wt 95.0 kg
--- NOTE | 2024-05-21 23:57 | ED.PDOC ---
GI ASSESSMENT HPI Comments 23-year-old female who denies hypercholesterolemia, denies drug abuse, denies smoking but does vape, endorses recent pancreatitis secondary to choledocholithiasis/UTI/recent miscarriage, presents with the same epigastric discomfort radiating to her back as she did when she had pancreatitis the last time. She indicates that she is allergic to adhesive tape. She endorses 10/10 aching discomfort, nonradiating with nausea and vomiting. 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 Family History Family History: Unknown Social History Smoker: Other Alcohol: Denies ETOH Use Drugs: Denies Drug Use Lives In: Home Constitutional: denies: chills, fever, weakness Respiratory: denies: cough Cardiovascular: denies: chest pain Gastrointestinal: reports: abdominal pain, nausea, vomiting All Other Systems: Reviewed and Negative Physical Exam General Appearance: No Apparent Distress, Normal HEENT: Normal ENT Inspection, Pharynx Normal, TMs Normal Neck: Full Range of Motion, Non-Tender, Normal, Normal Inspection Respiratory: Chest Non-Tender, Lungs Clear, No Accessory Muscle Use, No Respiratory Distress, Normal Breath Sounds Cardiovascular: No Edema, No JVD, No Murmur, No Gallop, Normal Peripheral Pulses, Regular Rate/Rhythm Breast Exam: Deferred Gastrointestinal: No Organomegaly, No Pulsatile Mass, Normal Bowel Sounds, Soft, Tenderness (Epigastric discomfort), Other (No Mendez Mayen's or Converse's sign) Genitalia: Deferred Pelvic: Deferred Rectal: Deferred Extremities: No calf tenderness, Normal capillary refill, Normal inspection, Normal range of motion, Non-tender, No pedal edema Musculoskeletal : Apperance: Normal Neurologic: Alert, facilities coordinator II-XII nml as Tested, No Motor Deficits, Normal Affect, Normal Mood, No Sensory Deficits Cerebellar Function: Normal Reflexes: Normal Skin: Dry, Normal Color, Warm Lymphatic: No Adenopathy Was a procedure done? Was a procedure done?: No GI differential Dx Differential Diagnosis: Other (Gastritis, pancreatitis, choledocholithiasis, cholecystitis, drug-seeking to name a few) X-Ray, Labs, Meds, VS Vital Signs Date Time Temp Pulse Resp B/P (MAP) Pulse Ox O2 Delivery O2 Flow Rate FiO2 05/22/24 01:08 86 16 102/61 05/22/24 00:53 99.6 86 16 102/61 (75) 98 99.6 05/22/24 00:53 86 16 98 Room Air 05/21/24 23:30 98.2 101 16 114/80 (91) 98 Lab Test 05/21/24 23:58 Range/Units White Blood Count 11.8 H 4.4-10.8 10^3/uL Red Blood Count 4.79 4.0-5.20 10^6/uL Hemoglobin 14.0 12.2-16.2 g/dL Hematocrit 41.3 36.0-46.0 % Mean Corpuscular Volume 86.3 80.0-100.0 fL Mean Corpuscular Hemoglobin 29.3 28.0-32.0 pg Mean Corpuscular Hemoglobin Concent 33.9 32.0-36.0 g/dL Red Cell Distribution Width 13.1 11.8-14.3 % Platelet Count 328 140-450 10^3/uL Mean Platelet Volume 7.5 6.9-10.8 fL Neutrophils (%) (Auto) 56.9 37.0-80.0 % Lymphocytes (%) (Auto) 33.0 10.0-50.0 % Monocytes (%) (Auto) 7.2 0.0-12.0 % Eosinophils (%) (Auto) 1.9 0.0-7.0 % Basophils (%) (Auto) 1.0 0.0-2.0 % Neutrophils # (Auto) 6.7 1.6-8.6 10 ^3/uL Lymphocytes # (Auto) 3.9 0.4-5.4 10 ^3/uL Monocytes # (Auto) 0.9 0-1.3 10 ^3/uL Eosinophils # (Auto) 0.2 0-0.8 10 ^3/uL Basophils # (Auto) 0.1 0-0.2 10 ^3/uL Nucleated Red Blood Cells 0.1 % Prothrombin Time 10.4 9.3-11.8 sec Prothrombin Time INR 0.98 0.9-1.15 Activated Partial Thromboplast Time 29.6 24.5-34.5 SEC Sodium Level 140 136-145 mmol/L Potassium Level 3.7 3.5-5.1 mmol/L Chloride Level 104 98-107 mmol/L Carbon Dioxide Level 24 20-31 mmol/L Anion Gap 12 5-15 Blood Urea Nitrogen 12 9-23 mg/dL Creatinine 0.72 0.550-1.02 mg/dL Glomerular Filtration Rate Calc 121 >90 mL/min BUN/Creatinine Ratio 16.7 10.0-20.0 Serum Glucose 93 74-106 mg/dL Lactic Acid Level 1.1 0.4-2.0 mmol/L Calcium Level 10.4 8.7-10.4 mg/dL Total Bilirubin 0.4 0.2-1.0 mg/dL Aspartate Amino Transferase (AST) 42 H 13-40 U/L Alanine Aminotransferase (ALT) 55 H 7-40 U/L Alkaline Phosphatase 79 46-116 U/L Total Protein 8.0 5.7-8.2 g/dL Albumin 4.9 H 3.2-4.8 g/dL Lipase 51 12-53 U/L Beta HCG, Quantitative 0.4 L 1.5-4.2 mIU/mL Current Medications Medications (Trade) Dose Ordered Sig/Izzy Route Start Time Stop Time Status Last Admin Metoclopramide HCl (Reglan Injection) 10 mg ONCE ONCE IV 05/22/24 00:00 05/22/24 00:01 DC 05/22/24 01:06 Ondansetron HCl (Zofran) 4 mg ONCE ONCE IV 05/22/24 00:00 05/22/24 00:01 DC 05/22/24 01:05 Sodium Chloride 1,000 ml @ 1,000 mls/hr Q1H ONCE IVB 05/22/24 00:00 05/22/24 00:59 DC 05/22/24 00:46 Hydromorphone HCl (Dilaudid Injection) 0.5 mg ONCE ONCE IV 05/22/24 00:00 05/22/24 00:01 DC 05/22/24 01:08 X-Ray, Labs, Meds, VS Comment ORDERING PHYSICIAN: TRISHA THOMAS MD PROCEDURE(s): GBUS - GALLBLADDER REASON: Reoccurrence of abdominal discomfort ORDER NUMBER(s): [id number], ACCESSION NUMBER(s): [id number] INDICATION: Reoccurrence of abdominal discomfort TECHNIQUE: Multiple real-time sonographic images of the right upper quadrant were obtained. COMPARISON: US GALLBLADDER on DOS: 05/03/24 FINDINGS: Liver is heterogeneous in echogenicity. The liver measures 15. cm. No intrahepatic biliary ductal dilatation is noted. The gallbladder wall measures 0.2 cm and is unremarkable. Multiple mobile gallstones are seen. No pericholecystic fluid or edema. The common duct is dilated measuring 0.7 cm The right kidney measures 9. cm. No hydronephrosis. The pancreas is not well visualized due to obscuration from bowel gas. The visualized portions of the IVC and aorta are grossly unremarkable. IMPRESSION: 1. Re-demonstration of abnormally dilated common bile duct measuring up to 0.7 cm, not significantly changed since May 03, 2024. If bilirubin levels are elevated, recommend GI evaluation for possible ERCP. 2. Cholelithiasis without evidence of cholecystitis. 3. Hepatic steatosis. Exam: CT CT AB PEL WO CON-NO ORAL OR IV History: Reoccurrence of pancreatitis potentially secondary to choled Comparison Study: None Technique: Multidetector spiral CT of the abdomen was performed from lung bases to pubic symphysis. Imaging was performed without IV contrast. Axial, coronal and sagittal multiplanar reformats were obtained from the axial data set by the technologist. Radiation Dose : 1. Abdomen/Pelvis: CTDIvol 13.1 mGy, DLP 797 mGy*cm. Findings: Evaluation of solid organs is limited due to lack of intravenous contrast use. Lung Bases: No acute or significant lung base finding. Normal heart size. No pleural or pericardial effusion. Liver: The liver is normal in size. No focal lesions. Gallbladder and Biliary Tree: Cholelithiasis. Spleen: Unremarkable Pancreas: The pancreas is grossly normal in appearance. Adrenal Glands: Unremarkable Kidneys: Kidneys are grossly normal without calculi or hydronephrosis. Bladder: Grossly unremarkable for degree of distention. Bowel: The stomach is grossly normal in appearance. Minimal wall thickening of the sigmoid colon may reflect underdistention versus mild colitis. Normal appendix is visualized in the right lower quadrant without findings of appendicitis. Ascites: Absent Lymphadenopathy: Re-demonstration of slightly prominent lymph nodes in the right lower quadrant. Abdominal Wall and Mesentery: Unremarkable. Vasculature: The visualized abdominal aorta is normal in size and caliber. Evaluation of abdominal and pelvic vessels is limited due to lack of intravenous contrast. Pelvic Organs: Unremarkable Musculoskeletal: No aggressive focal bony lesions, acute fractures or dislocation. IMPRESSION: 1. Minimal wall thickening of the sigmoid colon may reflect underdistention versus mild colitis. 2. No CT evidence of pancreatitis. 3. Redemonstration of slightly prominent mesenteric lymph nodes in the right lower quadrant. 4. Cholelithiasis. Time of 1ST Reevaluation: 01:45 Reevaluation 1ST: Resolved (Patient has tolerated p.o.. Patient feels better. 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
[2024-05-22 00:09] LABS: Basophils # (auto) 0.1 10 ^3/uL (0-0.2); Eosinophils # (auto) 0.2 10 ^3/uL (0-0.8); Eosinophils % (auto) 1.9 % (0.0-7.0); Hematocrit 41.3 % (36.0-46.0); Lymphocytes # (auto) 3.9 10 ^3/uL (0.4-5.4); Mean Corpuscular Hemoglobin 29.3 pg (28.0-32.0); Mean Corpuscular Hgb Conc. 33.9 g/dL (32.0-36.0); Mean Corpuscular Volume 86.3 fL (80.0-100.0); Monocytes # (auto) 0.9 10 ^3/uL (0-1.3); Monocytes % (auto) 7.2 % (0.0-12.0); Neutrophils # (auto) 6.7 10 ^3/uL (1.6-8.6); Neutrophils % (auto) 56.9 % (37.0-80.0); Nucleated Red Blood Cells % 0.1 %; Platelet Count (auto) 328 10^3/uL (140-450); Red Blood Cells 4.79 10^6/uL (4.0-5.20); Red Cell Distribution Width 13.1 % (11.8-14.3); White Blood Cell 11.8 10^3/uL (4.4-10.8)
[2024-05-22 00:28] LABS: Alkaline Phosphatase 79 U/L (46-116); Anion Gap 12 (5-15); BUN/Creatinine Ratio 16.7 (10.0-20.0); Bilirubin, Total 0.4 mg/dL (0.2-1.0); Blood Urea Nitrogen 12 mg/dL (9-23); Carbon Dioxide 24 mmol/L (20-31); Chloride 104 mmol/L (98-107); Glucose 93 mg/dL (74-106); INR 0.98 (0.9-1.15); Lipase 51 U/L (12-53); Partial Thromboplastin Time 29.6 SEC (24.5-34.5); Potassium 3.7 mmol/L (3.5-5.1); Prothrombin Time 10.4 sec (9.3-11.8); Sodium 140 mmol/L (136-145)
[2024-05-22 00:34] LABS: Albumin 4.9 g/dL (3.2-4.8); Aspartate Aminotransferase 42 U/L (13-40); Calcium 10.4 mg/dL (8.7-10.4)
--- NOTE | 2024-05-22 00:40 | DVH ---
INDICATION: Reoccurrence of abdominal discomfort TECHNIQUE: Multiple real-time sonographic images of the right upper quadrant were obtained. COMPARISON: US GALLBLADDER on DOS: 05/03/24 FINDINGS: Liver is heterogeneous in echogenicity. The liver measures 15. cm. No intrahepatic biliary ductal dilatation is noted. The gallbladder wall measures 0.2 cm and is unremarkable. Multiple mobile gallstones are seen. No pericholecystic fluid or edema. The common duct is dilated measuring 0.7 cm The right kidney measures 9. cm. No hydronephrosis. The pancreas is not well visualized due to obscuration from bowel gas. The visualized portions of the IVC and aorta are grossly unremarkable. IMPRESSION: 1. Re-demonstration of abnormally dilated common bile duct measuring up to 0.7 cm, not significantly changed since May 03, 2024. If bilirubin levels are elevated, recommend GI evaluation for possi ble ERCP. 2. Cholelithiasis without evidence of cholecystitis. 3. Hepatic steatosis.
[2024-05-22 00:46] LABS: Alanine Aminotransferase 55 U/L (7-40)
[2024-05-22] MEDS: SODIUM CHLORIDE 0.9% 1,000 ML IVB ONE (00:46)
[2024-05-22] MEDS: ONDANSETRON HCL 4 MG/2 ML VIAL IV ONE (01:05)
[2024-05-22] MEDS: METOCLOPRAMIDE HCL 5MG/ml INJ 2ml VIAL IV ONE (01:06)
--- NOTE | 2024-05-22 01:07 | DVH ---
Exam: CT CT AB PEL WO CON-NO ORAL OR IV History: Reoccurrence of pancreatitis potentially secondary to choled Comparison Study: None Technique: Multidetector spiral CT of the abdomen was performed from lung bases to pubic symphysis. Imaging was performed without IV contrast. Axial, coronal and sagittal multiplanar reformats were ob tained from the axial data set by the technologist. Radiation Dose : 1. Abdomen/Pelvis: CTDIvol 13.1 mGy, DLP 797 mGy*cm. Findings: Evaluation of solid organs is limited due to lack of intravenous contrast use. Lung Bases: No acute or significant lung base finding. Normal heart size. No pleural or pericardial effusion. Liver: The liver is normal in size. No focal lesions. Gallbladder and Biliary Tree: Cholelithiasis. Spleen: Unremarkable Pancreas: The pancreas is grossly normal in appearance. Adrenal Glands: Unremarkable Kidneys: Kidneys are grossly normal without calculi or hydronephrosis. Bladder: Grossly unremarkable for degree of distention. Bowel: The stomach is grossly normal in appearance. Minimal wall thickening of the sigmoid colon may reflect underdistention versus mild colitis. Normal appendix is visualized in the right lower quadra nt without findings of appendicitis. Ascites: Absent Lymphadenopathy: Re-demonstration of slightly prominent lymph nodes in the right lower quadrant. Abdominal Wall and Mesentery: Unremarkable. Vasculature: The visualized abdominal aorta is normal in size and caliber. Evaluation of abdominal a nd pelvic vessels is limited due to lack of intravenous contrast. Pelvic Organs: Unremarkable Musculoskeletal: No aggressive focal bony lesions, acute fractures or dislocation. IMPRESSION: 1. Minimal wall thickening of the sigmoid colon may reflect underdistention versus mild colitis. 2. No CT evidence of pancreatitis. 3. Redemonstration of slightly prominent mesenteric lymph nodes in the right lower quadrant. 4. Cholelithiasis. Radiation optimization: All CT scans at this facility use at least one of these dose optimization denis hniques: automated exposure control mA and/or kV adjustment per patient size (includes targeted exam s where dose is matched to clinical indication) or iterative reconstruction.
[2024-05-22] MEDS: HYDROmorphone HCL 2 MG/ML VL/or syr IV ONE (01:08)
[2024-05-22 01:49] VITALS: BP 110/72; PULSE 89; TEMP 99.2
[2024-05-22 01:52] VITALS: RESP 16; O2SAT 98
== END 2024-05-22 02:00 | disposition home or self-care (01) ==
LOC: EDBD 23:21 → ER 23:21
DX: K80.50 Calculus of bile duct without cholangitis or cholecystitis without obstruction (principal); R10.2 Pelvic and perineal pain; F41.9 Anxiety disorder, unspecified; F32.9 Major depressive disorder, single episode, unspecified; F17.200 Nicotine dependence, unspecified, uncomplicated
CPT/HCPCS: 36415; 74176; 76705; 80053; 83605; 83690; 84702; 85025; 85610; 85730; 96361; 96374; 96375; 99285; J1171; J2405; J2765; J7030

== ENCOUNTER 2024-05-22 13:22 | Inpatient (IN) | payer BC, MEDICAID ==
[~2024-05-22] VITALS: Ht 162.6 cm; Wt 86.9 kg
--- NOTE | 2024-05-22 13:57 | ED.PDOC ---
GI ASSESSMENT HPI Comments 23Y F with PMHx gallstones, pancreatitis, depression, and anxiety presents to ED via EMS for chief complaint RUQ abd pain. Pt describes pain as pressure. Pt states she has been unable to keep food down for one week. Pt was seen at [facility] ER yesterday, 05/21/2024, and was dx with acute abd pain and biliary colic. No known drug allergies. Chief Complaint: Abdominal Pain Time Seen by MD: 13:34 Primary Care Provider: None Reviewed Notes: Medications, Allergies Allergies: Uncoded Allergies: ADHESIVES (Allergy, Unknown, 05/03/24) Home Meds No Active Prescriptions or Reported Meds Information Source: Patient, Emergency Med Personnel Mode of Arrival: EMS Brought in by: EMS Timing: Days Duration: Since onset Prehospital treatment: Other Quality: Sharp Vomitus: None Stool: Normal Severity: Severe Recent: None Recent Hx of: None Pain Location: RUQ Modifying Factors: Nothing Associated sign and symptoms: Abdominal Pain Past Medical History PAST MEDICAL HISTORY: Anxiety, Depression, Gallstones Surgical History: Denies all surgeries REPOSSESSOR History: Spontaneous Family History Family History: Unknown Social History Smoker: Other Alcohol: Denies ETOH Use Drugs: Denies Drug Use Lives In: Home Constitutional: denies: chills, diaphoresis, fatigue, fever, malaise, sweats, weakness, others EENTM: denies: blurred vision, double vision, ear bleeding, ear discharge, ear drainage, ear pain, ear ringing, eye pain, eye redness, hearing loss, mouth pain, mouth swelling, nasal discharge, nose bleeding, nose congestion, nose pain, photophobia, tearing, throat pain, throat swelling, voice changes, others Respiratory: denies: cough, hemoptysis, orthopnea, SOB at rest, shortness of breath, SOB with excertion, stridor, wheezing, others Cardiovascular: denies: chest pain, dizzy spells, diaphoresis, Dyspnea on exertion, edema, irregular heart beat, left arm pain, lightheadedness, palpitations, PND, syncope, others Gastrointestinal: reports: abdominal pain; denies: abdomen distended, blood streaked bowels, constipated, diarrhea, dysphagia, difficulty swallowing, hematemesis, melena, nausea, poor appetite, poor fluid intake, rectal bleeding, rectal pain, vomiting, others Genitourinary: denies: abnormal vagina bleeding, burning, dyspareunia, dysuria, flank pain, frequency, hematuria, incontinence, pain, , vagina discharge, urgency, others Neurological: denies: dizziness, fainting, headache, left sided numbness, left sided weakness, numbness, paresthesia, pre-existing deficit, right sided numbness, right sided weakness, seizure, speech problems, tingling, tremors, weakness, others Musculoskeletal: denies: back pain, gout, joint pain, joint swelling, muscle pain, muscle stiffness, neck pain, others Integumetry: denies: bruises, change in color, change in hair/nails, dryness, laceration, lesions, lumps, rash, wounds, others Allergic/Immunocompromised: denies: Difficulty Healing, Frequent Infections, Hives, Itching, others Hematologic/Lymphatic: denies: anemia, blood clots, easy bleeding, easy bruising, swollen glands, others Endocrine: denies: excessive hunger, excessive sweating, excessive thirst, excessive urination, flushing, intolerance to cold, intolerance to heat, unexplained weight gain, unexplained weight loss, others Psychiatric: denies: anxiety, bipolar disorder, depression, hopeless, panic disorder, schizophrenia, sleepless, suicidal, others All Other Systems: Reviewed and Negative Physical Exam General Appearance: Moderate Distress HEENT: Normal ENT Inspection, Pharynx Normal, TMs Normal Neck: Full Range of Motion, Non-Tender, Normal, Normal Inspection Respiratory: Chest Non-Tender, Lungs Clear, No Accessory Muscle Use, No Respiratory Distress, Normal Breath Sounds Cardiovascular: No Edema, No JVD, No Murmur, No Gallop, Normal Peripheral Pulses, Regular Rate/Rhythm Breast Exam: Deferred Gastrointestinal: RUQ, Tenderness Genitalia: Deferred Pelvic: Deferred Rectal: Deferred Extremities: No calf tenderness, Normal capillary refill, Normal inspection, Normal range of motion, Non-tender, No pedal edema Musculoskeletal : Apperance: Normal Neurologic: Alert, client representative II-XII nml as Tested, No Motor Deficits, Normal Affect, Normal Mood, No Sensory Deficits Cerebellar Function: NOT DONE Reflexes: NOT DONE Skin: Dry, Normal Color, Warm Lymphatic: No Adenopathy Was a procedure done? Was a procedure done?: No GI differential Dx Differential Diagnosis: Cholecystitis, Gastritis/PUD, Gastroenteritis, Urolithiasis X-Ray, Labs, Meds, VS Vital Signs Date Time Temp Pulse Resp B/P (MAP) Pulse Ox O2 Delivery O2 Flow Rate FiO2 05/22/24 17:04 86 19 108/67 05/22/24 17:03 86 19 108/67 (81) 98 05/22/24 13:30 98.0 95 20 102/65 (77) 100 Lab Test 05/22/24 14:21 Range/Units White Blood Count 8.3 # 4.4-10.8 10^3/uL Red Blood Count 4.98 4.0-5.20 10^6/uL Hemoglobin 14.6 12.2-16.2 g/dL Hematocrit 42.7 36.0-46.0 % Mean Corpuscular Volume 85.8 80.0-100.0 fL Mean Corpuscular Hemoglobin 29.3 28.0-32.0 pg Mean Corpuscular Hemoglobin Concent 34.2 32.0-36.0 g/dL Red Cell Distribution Width 13.4 11.8-14.3 % Platelet Count 318 140-450 10^3/uL Mean Platelet Volume 7.8 6.9-10.8 fL Neutrophils (%) (Auto) 69.4 37.0-80.0 % Lymphocytes (%) (Auto) 19.6 10.0-50.0 % Monocytes (%) (Auto) 9.3 0.0-12.0 % Eosinophils (%) (Auto) 1.4 0.0-7.0 % Basophils (%) (Auto) 0.3 0.0-2.0 % Neutrophils # (Auto) 5.8 1.6-8.6 10 ^3/uL Lymphocytes # (Auto) 1.6 0.4-5.4 10 ^3/uL Monocytes # (Auto) 0.8 0-1.3 10 ^3/uL Eosinophils # (Auto) 0.1 0-0.8 10 ^3/uL Basophils # (Auto) 0 0-0.2 10 ^3/uL Nucleated Red Blood Cells 0.1 % Sodium Level 140 136-145 mmol/L Potassium Level 3.8 3.5-5.1 mmol/L Chloride Level 106 98-107 mmol/L Carbon Dioxide Level 25 20-31 mmol/L Anion Gap 9 5-15 Blood Urea Nitrogen 10 9-23 mg/dL Creatinine 0.76 0.550-1.02 mg/dL Glomerular Filtration Rate Calc 114 >90 mL/min BUN/Creatinine Ratio 13.2 10.0-20.0 Serum Glucose 83 74-106 mg/dL Calcium Level 10.3 8.7-10.4 mg/dL Total Bilirubin 1.6 H 0.2-1.0 mg/dL Aspartate Amino Transferase (AST) 162 H 13-40 U/L Alanine Aminotransferase (ALT) 130 H 7-40 U/L Alkaline Phosphatase 89 46-116 U/L Total Protein 8.0 5.7-8.2 g/dL Albumin 4.7 3.2-4.8 g/dL Lipase 50 12-53 U/L Current Medications Medications (Trade) Dose Ordered Sig/Izzy Route Start Time Stop Time Status Last Admin Sodium Chloride 1,000 ml @ 1,000 mls/hr Q1H ONCE IV 05/22/24 14:00 05/22/24 14:59 DC 05/22/24 17:03 Morphine Sulfate 4 mg ONCE ONCE IV 05/22/24 14:00 05/22/24 14:01 DC 05/22/24 17:04 Ondansetron HCl (Zofran) 4 mg ONCE ONCE IV 05/22/24 14:00 05/22/24 14:01 DC 05/22/24 17:04 Time of 1ST Reevaluation: 14:04 Reevaluation 1ST: Unchanged Patient Education/Counseling: Diagnosis, Treatment Family Education/Counseling: No Family Present Additional Information I reviewed the following notes from the pt's past medical encounters: [facility] ER 05/21/2024 dx acute abd pain and biliary colic, [facility] discharge 05/06/2024 dx acute pancreatitis The following tests were ordered, and results were reviewed by me: CBC, CMP, Lipase Additional information was gathered from interviewing the following independent historians: EMS I discussed treatments and results with medical personnel. Departure 1 Departure Time of Disposition: 17:18 (Patient presented with abdominal pain that was concerning for possible appendicits, gastritis, cholecystitis, colitis, gastroenteritis, sbo, or orther possible surgical emergency. Data: 1. I ordered and reviewed the result of at least 3 labs including a CBC, BMP, and Urinalysis. 2. I independently interpreted the following tests: Ultrasound I was performed last night which shows gallstones..Risk:This patient has a high risk of morbidity due to further diagnostic testing or treatment and may suffer from an acute abdominal process disorder. Workup reveals cholelithiasis and intractable abdominal pain and patient should be admitted for further workup. and possible expert consultation. ) Impression: Primary Impression: Cholelithiasis Qualified Codes: K80.20 - Calculus of gallbladder without cholecystitis without obstruction Additional Impressions: Projectile vomiting with nausea Intractable abdominal pain Disposition: ADMITTED INPATIENT Admit to: Med Surg Condition: Serious e-Prescriptions No Active Prescriptions or Reported Meds Critical Care Note Critical Care Time?: Yes Critical care comment: Intractable abdominal pain Authorized and Performed by: Elijah Lyons MD Total critical care time: Approximately 33 minutes Due to a high probability of clinically significant, life threatening deterioration, the patient required my highest level of preparedness to intervene emergently and I personally spent this critical care time directly and personally managing the patient. This critical care time included obtaining a history; examining the patient; pulse oximetry; ordering and review of studies; arranging urgent treatment with development of a management plan; evaluation of patient's response to treatment; frequent reassessment; and, discussions with other providers. This critical care time was performed to assess and manage the high probability of imminent, life-threatening deterioration that could result in multi-organ failure. It was exclusive of separately billable procedures and treating other patients and teaching time. Please see my other sections and the rest of the note for further information on patient assessment and treatment. Stability Stability form required: No Heart Score Heart Score: Heart Score Response (Comments) Value History N/A 0 EKG N/A 0 Age N/A 0 Risk Factors N/A 0 Troponin N/A 0 Total 0 I personally scribed for ELIJAH LYONS MD ([email or web address]) on 05/22/24 at 13:57. Electronically submitted by Jacquelin Holland ([email or web address]). ELIJAH LYONS MD May 22, 2024 13:57
[2024-05-22 14:37] LABS: Basophils # (auto) 0 10 ^3/uL (0-0.2); Basophils % (auto) 0.3 % (0.0-2.0); Eosinophils # (auto) 0.1 10 ^3/uL (0-0.8); Eosinophils % (auto) 1.4 % (0.0-7.0); Hematocrit 42.7 % (36.0-46.0); Hemoglobin 14.6 g/dL (12.2-16.2); Lymphocytes # (auto) 1.6 10 ^3/uL (0.4-5.4); Lymphocytes % (auto) 19.6 % (10.0-50.0); Mean Corpuscular Hemoglobin 29.3 pg (28.0-32.0); Mean Corpuscular Hgb Conc. 34.2 g/dL (32.0-36.0); Mean Corpuscular Volume 85.8 fL (80.0-100.0); Monocytes # (auto) 0.8 10 ^3/uL (0-1.3); Monocytes % (auto) 9.3 % (0.0-12.0); Neutrophils # (auto) 5.8 10 ^3/uL (1.6-8.6); Neutrophils % (auto) 69.4 % (37.0-80.0); Nucleated Red Blood Cells % 0.1 %; Platelet Count (auto) 318 10^3/uL (140-450); Red Blood Cells 4.98 10^6/uL (4.0-5.20); Red Cell Distribution Width 13.4 % (11.8-14.3); White Blood Cell 8.3 10^3/uL (4.4-10.8)
[2024-05-22 14:49] LABS: Alkaline Phosphatase 89 U/L (46-116); Calcium 10.3 mg/dL (8.7-10.4); Carbon Dioxide 25 mmol/L (20-31); Chloride 106 mmol/L (98-107); Glucose 83 mg/dL (74-106)
[2024-05-22 14:50] LABS: Albumin 4.7 g/dL (3.2-4.8); Anion Gap 9 (5-15); BUN/Creatinine Ratio 13.2 (10.0-20.0); Blood Urea Nitrogen 10 mg/dL (9-23); Potassium 3.8 mmol/L (3.5-5.1); Sodium 140 mmol/L (136-145)
[2024-05-22 14:55] LABS: Alanine Aminotransferase 130 U/L (7-40); Aspartate Aminotransferase 162 U/L (13-40); Bilirubin, Total 1.6 mg/dL (0.2-1.0)
[2024-05-22 15:16] LABS: Lipase 50 U/L (12-53)
[2024-05-22] MEDS: SODIUM CHLORIDE 0.9% 1,000 ML IV ONE ×2 (17:03→19:00)
[2024-05-22] MEDS: MORPHINE SULFATE 4 MG/ML SYR/VIAL IV ONE ×2 (17:04→17:30)
[2024-05-22] MEDS: ONDANSETRON HCL 4 MG/2 ML VIAL IV ONE ×2 (17:04→22:39)
--- NOTE | 2024-05-22 18:56 | DVHHP2 ---
History of Present Illness Reason for Visit: Abdominal pain History of Present Illness 23-year-old obese patient no apparent history other than anxiety depression and gallstones comes to the ED with right upper quadrant pain for the past week pain was associated with increased right upper abdominal pressure nausea and vomiting and difficulty holding food down patient was initially seen in the ED ER yesterday having acute pain left inguinal home came back today with worsening upper bradycardia and pain patient was recommended by ED for further evaluation and management care Psych: Anxiety, Depression Review of Systems Constitutional: Yes: Weakness; No: Fever, Chills, Sweats, Malaise, Other Eyes: No: Pain, Vision change, Conjunctivae inflammation, Eyelid inflammation, Other, Redness ENT: No: Ear pain, Ear discharge, Nose pain, Nose discharge, Nose congestion, Mouth pain, Mouth swelling, Throat pain, Throat swelling, Other Respiratory: No: Cough, Dry, Shortness of breath, SOB with excertion, Wheezing, Hemoptysis, Pleuritic Pain, Sputum, Wheezing, Other Cardiovascular: No: Chest Pain, Palpitations, Orthopnea, Paroxysmal Noc. Dyspnea, Edema, Lt Headedness, Other Gastrointestinal: Nausea, Vomiting, Abdominal Pain; No: Diarrhea, Constipation, Melena, Hematochezia, Other Genitourinary: No Dysuria, No Frequency, No Incontinence, No Hematuria, No Retention, No Other Musculoskeletal: No: other, neck pain, shoulder pain, arm pain, back pain, hand pain, leg pain, foot pain Skin: No: Rash, Lesions, Jaundice, Bruising, Other Neurological: No: Weakness, Numbness, Incoordination, Change in speech, Confusion, Seizures, Other Allergies: Uncoded Allergies: ADHESIVES (Allergy, Unknown, 05/03/24) Exam Vital Signs Vital Signs Date Time Temp Pulse Resp B/P (MAP) Pulse Ox O2 Delivery O2 Flow Rate FiO2 05/22/24 17:04 86 19 108/67 05/22/24 17:03 98 05/22/24 13:30 98.0 General Appearance: Alert, Oriented X3 HEENT: Atraumatic, PERRLA Respiratory: Clear to auscultation, Normal air movement Cardiovascular: Regular rate, Normal S1, Normal S2 Abdominal: Normal bowel sounds, Soft Extremities: No clubbing, No cyanosis Skin: No rashes, No breakdown Neuro: Normal gait, Normal speech Psych/Mental Status: Mood NL Labs/Xrays Labs Test 05/22/24 14:21 Range/Units White Blood Count 8.3 # 4.4-10.8 10^3/uL Red Blood Count 4.98 4.0-5.20 10^6/uL Hemoglobin 14.6 12.2-16.2 g/dL Hematocrit 42.7 36.0-46.0 % Mean Corpuscular Volume 85.8 80.0-100.0 fL Mean Corpuscular Hemoglobin 29.3 28.0-32.0 pg Mean Corpuscular Hemoglobin Concent 34.2 32.0-36.0 g/dL Red Cell Distribution Width 13.4 11.8-14.3 % Platelet Count 318 140-450 10^3/uL Mean Platelet Volume 7.8 6.9-10.8 fL Neutrophils (%) (Auto) 69.4 37.0-80.0 % Lymphocytes (%) (Auto) 19.6 10.0-50.0 % Monocytes (%) (Auto) 9.3 0.0-12.0 % Eosinophils (%) (Auto) 1.4 0.0-7.0 % Basophils (%) (Auto) 0.3 0.0-2.0 % Neutrophils # (Auto) 5.8 1.6-8.6 10 ^3/uL Lymphocytes # (Auto) 1.6 0.4-5.4 10 ^3/uL Monocytes # (Auto) 0.8 0-1.3 10 ^3/uL Eosinophils # (Auto) 0.1 0-0.8 10 ^3/uL Basophils # (Auto) 0 0-0.2 10 ^3/uL Nucleated Red Blood Cells 0.1 % Sodium Level 140 136-145 mmol/L Potassium Level 3.8 3.5-5.1 mmol/L Chloride Level 106 98-107 mmol/L Carbon Dioxide Level 25 20-31 mmol/L Anion Gap 9 5-15 Blood Urea Nitrogen 10 9-23 mg/dL Creatinine 0.76 0.550-1.02 mg/dL Glomerular Filtration Rate Calc 114 >90 mL/min BUN/Creatinine Ratio 13.2 10.0-20.0 Serum Glucose 83 74-106 mg/dL Calcium Level 10.3 8.7-10.4 mg/dL Total Bilirubin 1.6 H 0.2-1.0 mg/dL Aspartate Amino Transferase (AST) 162 H 13-40 U/L Alanine Aminotransferase (ALT) 130 H 7-40 U/L Alkaline Phosphatase 89 46-116 U/L Total Protein 8.0 5.7-8.2 g/dL Albumin 4.7 3.2-4.8 g/dL Lipase 50 12-53 U/L Assessment/Plan Assessment/Plan Admit to [facility] Cholelithiasis Versus acute choledocholithiasis and pancreatitis from gallstone obstruction Surgical evaluation P.r.n. medication for pain management IV hydration NPO IV antibiotics Flagyl q.8 Plan discussed with: Patient My Orders Orders - DHEERAJ CHAPIN MD Procedure Category Date Status Time Drug Screen LAB 05/22/24 Logged 18:48 Urinalysis LAB 05/22/24 Logged 18:48 Test, Urine LAB 05/22/24 Logged 18:48 Admit ADMIT 05/22/24 Transmitted 18:48 Code Status CODE 05/22/24 Transmitted 18:48 Vital Signs [facility] 05/22/24 In Process 18:48 Review Orders With RACHEL 05/22/24 In Process Adm. 18:48 Npo (Nothing By DIET 05/23/24 Transmitted Mouth) Diet Breakfast Sodium Chloride 0.9% PHA 05/22/24 Logged 19:00 Lorazepam Tablet PHA 05/22/24 Logged (Ativan Tablet) 19:00 Alum & Mag PHA 05/22/24 Logged Hydrox-Simethicone 19:00 Docusate Sodium PHA 05/22/24 Logged Capsule (Colace 19:00 Acetaminophen Tablet PHA 05/22/24 Logged (Tylenol Tablet) 19:00 Temazepam (Restoril) PHA 05/22/24 Logged 19:00 Notify Of Changes [facility] 05/22/24 In Process From Base 18:48 Advance Directive RAHCEL 05/22/24 In Process 18:48 Complete Blood Count LAB 05/23/24 Verified 04:00 Patient Condition ORDERS 05/22/24 Transmitted 18:48 Allergies RACHEL 05/22/24 In Process 18:48 Hydrocodone-Acet PHA 05/22/24 Logged 5/325mg Tab ([place] 19:00 Hydromorphone PHA 05/22/24 Logged Injection (Dilaudid 19:00 Ondansetron Hcl PHA 12/1/24 Logged (Zofran) 19:00 Morphine Sulfate PHA 05/22/24 Logged Injection 19:00 Notify Of Changes RACHEL 05/22/24 In Process From Base 18:48 Oxygen By Nasal RT 05/22/24 Transmitted Cannula 18:48 Problem List: (1) Acute cholecystitis (2) Acute pancreatitis (3) Projectile vomiting with nausea (4) Cholelithiasis (5) Elevated liver enzymes Date of Service: May 22, 2024 Billing Provider: DHEERAJ CHAPIN MD Common Visit Codes: [id number] INP/OBS CARE (HIGH) DHEERAJ CHAPIN MD May 22, 2024 18:56
[2024-05-22] MEDS: SODIUM CHLORIDE 0.9% 1,000 ML IV SCH (19:00)
[2024-05-22] MEDS ORDERED: ACETAMINOPHEN 325 MG TAB PO PRN (19:00)
[2024-05-22] MEDS ORDERED: DOCUSATE SOD 100 MG CAP PO PRN (19:00)
[2024-05-22] MEDS ORDERED: MAALOX PLUS or MAALOX 30 ML PO PRN (19:00)
[2024-05-22] MEDS ORDERED: MORPHINE SULFATE INJ 2 MG/ml SYRG IV PRN (19:00)
[2024-05-22] MEDS ORDERED: ONDANSETRON HCL 4 MG/2 ML VIAL IV PRN (19:00)
[2024-05-22] MEDS: metroNIDAZOLE 500MG/100ML 100 ML IV SCH (22:44)
[2024-05-23] VITALS (9 sets, daily range): BP systolic 93–123; BP diastolic 52–84; PULSE 71–95; RESP 12–20; TEMP 97.6–98.7; O2SAT 96–100
[2024-05-23 05:45] LABS: Basophils # (auto) 0 10 ^3/uL (0-0.2); Basophils % (auto) 0.6 % (0.0-2.0); Eosinophils # (auto) 0.1 10 ^3/uL (0-0.8); Eosinophils % (auto) 2.5 % (0.0-7.0); Hematocrit 37.7 % (36.0-46.0); Lymphocytes # (auto) 1.9 10 ^3/uL (0.4-5.4); Lymphocytes % (auto) 32.7 % (10.0-50.0); Mean Corpuscular Hemoglobin 29.6 pg (28.0-32.0); Mean Corpuscular Hgb Conc. 34.4 g/dL (32.0-36.0); Mean Corpuscular Volume 86.1 fL (80.0-100.0); Monocytes # (auto) 0.4 10 ^3/uL (0-1.3); Monocytes % (auto) 7.7 % (0.0-12.0); Neutrophils # (auto) 3.2 10 ^3/uL (1.6-8.6); Neutrophils % (auto) 56.5 % (37.0-80.0); Nucleated Red Blood Cells % 0.1 %; Platelet Count (auto) 235 10^3/uL (140-450); Red Blood Cells 4.38 10^6/uL (4.0-5.20); Red Cell Distribution Width 13.4 % (11.8-14.3); White Blood Cell 5.7 10^3/uL (4.4-10.8)
[2024-05-23] MEDS: HYDROcodone-ACET 5/325MG TAB PO PRN (07:35)
[2024-05-23] MEDS ORDERED: HYDROMORPHONE HCL 1 MG/ML INJ IV PRN (08:00)
--- NOTE | 2024-05-23 11:10 | DVHINCON2 ---
Date of service: May 23, 2024 Reason for Consultation cholelithiasis History of Present Illness HPI 23 year old female presented to the ED with right upper quadrant pain associated with nausea and vomiting. She states she is unable to hold any food down not even water. patient states she had a previous episode and was diagnosed with gallstones and pancreatitis. Home Meds No Active Prescriptions or Reported Meds Chief Complaint of Abdominal/F: Abdominal pain, Vomiting, Nausea Location of Abdominal Onset: RUQ, Epigastric Abdominal Pain Radiation: Back Timing of Abdominal Pain: Still present Past Medical History Cardiac: No pertinent Hx Pulmonary: No pertinent Hx Central Nervous System: No pertinent Hx GI: No pertinent Hx Hemotology/Oncology: No pertinent Hx Hepatobiliary: No pertinent Hx Psychiatric: No pertinent Hx Musculoskeletal: No pertinent Hx Rheumotologic: No pertinent Hx Infectious Disease: No peritnent Hx ENT: No pertinent Hx Renal/: No pertinent Hx Endocrine: No pertinent Hx Dermatology: No pertinent Hx Past Surgical History: No pertinent Hx Family History: No pertinent Hx Patient Family History: FH: skin cancer G8 FATHER Smoker: Other (vape) Alocohol: Occassional Drugs: None Lives with: With family Review of Systems Constitutional: No symptom reported Ears, Nose, & Throat: No symptom reported Eyes: No symptom reported Pulmonary/Respiratory: No symptom reported Cardiovascular: No symptom reported Gastrointestinal: Nausea, Vomiting, Abdominal Pain Genitourinary: No symptom reported Musculoskeletal: No symptom reported Skin: No symptom reported Psychiatric: No symptom reported Endocrine: No symptom reported Hemotologic/Lymphatic: No symptom reported H&P Exam Vital Signs Vital Signs Date Time Temp Pulse Resp B/P (MAP) Pulse Ox O2 Delivery O2 Flow Rate FiO2 05/23/24 09:44 98.7 87 17 93/52 (66) 98 98.7 General Appeara: Well developed, Well nourished, Normal Appearance Head Exam: Normal inspection Eye Exam: bilateral eye Normal inspection, bilateral eye PERRL Nasal Exam: Normal inspection Mouth: Normal Inspection Pulmonary/Respiratory: Normal inspection, Normal breath sounds, Chest non- tender Abdominal Exam: Normal bowel sounds, Soft Abdominal Pain Onset Location: RUQ, Epigastric Tendon/ 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 hearing, Normal speech, PERRL Neuro/Mental St: Alert, Oriented Appearance: Appropriate appearance Eye contact/ Speech: Cooperative, Good eye contact, Normal speech Skin Exam: Normal inspection, Normal color, Warm/dry Labs/Xrays Labs Test 05/23/24 05:05 05/22/24 14:21 Range/Units White Blood Count 5.7 # 4.4-10.8 10^3/uL Red Blood Count 4.38 4.0-5.20 10^6/uL Hemoglobin 13.0 12.2-16.2 g/dL Hematocrit 37.7 # 36.0-46.0 % Mean Corpuscular Volume 86.1 80.0-100.0 fL Mean Corpuscular Hemoglobin 29.6 28.0-32.0 pg Mean Corpuscular Hemoglobin Concent 34.4 32.0-36.0 g/dL Red Cell Distribution Width 13.4 11.8-14.3 % Platelet Count 235 140-450 10^3/uL Mean Platelet Volume 7.8 6.9-10.8 fL Neutrophils (%) (Auto) 56.5 37.0-80.0 % Lymphocytes (%) (Auto) 32.7 10.0-50.0 % Monocytes (%) (Auto) 7.7 0.0-12.0 % Eosinophils (%) (Auto) 2.5 0.0-7.0 % Basophils (%) (Auto) 0.6 0.0-2.0 % Neutrophils # (Auto) 3.2 1.6-8.6 10 ^3/uL Lymphocytes # (Auto) 1.9 0.4-5.4 10 ^3/uL Monocytes # (Auto) 0.4 0-1.3 10 ^3/uL Eosinophils # (Auto) 0.1 0-0.8 10 ^3/uL Basophils # (Auto) 0 0-0.2 10 ^3/uL Nucleated Red Blood Cells 0.1 % Sodium Level 140 136-145 mmol/L Potassium Level 3.8 3.5-5.1 mmol/L Chloride Level 106 98-107 mmol/L Carbon Dioxide Level 25 20-31 mmol/L Anion Gap 9 5-15 Blood Urea Nitrogen 10 9-23 mg/dL Creatinine 0.76 0.550-1.02 mg/dL Glomerular Filtration Rate Calc 114 >90 mL/min BUN/Creatinine Ratio 13.2 10.0-20.0 Serum Glucose 83 74-106 mg/dL Calcium Level 10.3 8.7-10.4 mg/dL Total Bilirubin 1.6 H 0.2-1.0 mg/dL Aspartate Amino Transferase (AST) 162 H 13-40 U/L Alanine Aminotransferase (ALT) 130 H 7-40 U/L Alkaline Phosphatase 89 46-116 U/L Total Protein 8.0 5.7-8.2 g/dL Albumin 4.7 3.2-4.8 g/dL Lipase 50 12-53 U/L Assessment/Plan Plan labs and image reports reviewed with Dr. Briseno patient complaint of epigastric and right upper quadrant pain associated with nausea and vomiting. positive Terrell sign Plan: Laparoscopic possibly open cholecystectomy on Thursday Plan discussed with: Patient, Other (Dr. Briseno) Visit Coding Surgery Date of Service if different f: May 23, 2024 Billing Provider: YOSELIN BRISENO MD Surgery Visit Codes: [id number] - INP CONSULT <80 MIN MIKEY MARTE NP May 23, 2024 11:10
[2024-05-23 11:50] LABS: INR 1.03 (0.9-1.15); Partial Thromboplastin Time 30.7 SEC (24.5-34.5); Prothrombin Time 10.9 sec (9.3-11.8)
--- NOTE | 2024-05-23 15:43 | DVHPN2 ---
Subjective Patient continues to report having epigastric and right upper quadrant pain. Reviewed: Care Plan, H&P, Medications Changes from previous H/P or p: No Changes General: Per HPI Eyes: No Pain, No Vision change, No Conjunctivae inflammation, No Eyelid inflammation, No Other, No Redness ENT: No Ear pain, No Ear discharge, No Nose pain, No Nose discharge, No Nose congestion, No Mouth pain, No Mouth swelling, No Throat pain, No Throat swelling, No Other Cardiovascular: No Chest Pain, No Palpitations, No Orthopnea, No Paroxysmal Noc. Dyspnea, No Edema, No Lt Headedness, No Other Respiratory: No Cough, No Dry, No Shortness of breath, No SOB with excertion, No Wheezing, No Hemoptysis, No Pleuritic Pain, No Sputum, No Other Gastrointestinal: Nausea, Vomiting, Abdominal Pain; No Diarrhea, No Constipation, No Melena, No Hematochezia, No Other Genitourinary: No Dysuria, No Frequency, No Incontinence, No Hematuria, No Retention, No Other Musculoskeletal: No other, No neck pain, No shoulder pain, No arm pain, No back pain, No hand pain, No leg pain, No foot pain Skin: No Rash, No Lesions, No Jaundice, No Bruising, No Other Objective Vitals Vital Signs Date Time Temp Pulse Resp B/P (MAP) Pulse Ox O2 Delivery O2 Flow Rate FiO2 05/23/24 13:16 98.7 87 17 93/52 (66) 98 98.7 Intake/Output Intake and Output 05/23/24 07:00 Intake Total 1100 ml Balance 1100 ml Intake IV Total 1100 ml General Appearance: Alert, Oriented X3, Cooperative, mild distress HEENT: Atraumatic, PERRLA Lungs: Clear to auscultation, Normal air movement Cardiovascular: Normal S1, Normal S2 Abdomen: Normal bowel sounds, Soft, Other (Positive Terrell's sign) Genitourinary: No Apparent Abnormalities Musculoskeletal: Normal sensory function, Normal motor function Neuro: Normal gait, Normal speech Psych/Mental Status: Mental status NL, Mood NL Medications Current Medications Medications Dose Ordered Sig/Izzy Route Start Time Stop Time Status Last Admin Dose Admin Lorazepam 0.5 mg Q6HP PRN PO 05/22/24 19:00 Al Hydrox/Mg Hydrox/Simethicone 30 ml Q6HP PRN PO 05/22/24 19:00 Docusate Sodium 100 mg BIDPRN PRN PO 05/22/24 19:00 Acetaminophen 650 mg Q6HP PRN PO 05/22/24 19:00 Temazepam 15 mg QHSP PRN PO 05/22/24 19:00 Acetaminophen/ Hydrocodone Bitart 1 tab Q4HP PRN PO 05/22/24 19:00 05/23/24 07:35 1 TAB Hydromorphone HCl 0.5 mg Q4HP PRN IV 05/23/24 08:00 Ondansetron HCl 4 mg Q4HP PRN IV 05/22/24 19:00 Morphine Sulfate 2 mg Q4HPRN PRN IV 05/22/24 19:00 Hold Metronidazole 100 ml @ 100 mls/hr Q8HR IV 05/22/24 19:11 05/23/24 13:47 100 MLS/HR Potassium Chloride/Dextrose/ Sod Cl 1,000 ml @ 100 mls/hr Q10H IV 05/23/24 15:15 UNV Morphine Sulfate 2 mg Q4HPRN PRN IV 05/23/24 15:15 UNV Laboratory Results Laboratory Tests 05/22/24 14:21 05/23/24 05:05 Coagulation Test 05/23/24 11:20 Prothrombin Time 10.9 sec (9.3-11.8) Prothrombin Time INR 1.03 (0.9-1.15) Activated Partial Thromboplast Time 30.7 SEC (24.5-34.5) Labs and/or images reviewed: Labs reviewed by me, Image(s) reviewed by me Assessment/Plan Assessment/Plan Impression: -cholelithiasis, probable cholecystitis -obesity Plan: -continue clear liquid diet -surgical consultation: Plans for cholecystectomy on 05/25/2024 -continue antibiotic therapy with Flagyl Rocephin -pain management -PUD, DVT prophylaxis -repeat labs in a.m. Total time spent with patient discussing and formulating plan of care: 35 minutes. This medical document was created using an electronic medical record system with [employer] system. Although this document has been carefully reviewed, there may still be some phonetic and typographical errors. These areas are purely typographical due to imperfections of the software programs, and do not reflect any compromise in the patient's medical care. 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
[2024-05-23] MEDS: D5W/SOD CHL 0.45%/KCL 20MEQ 1,000 ML IV SCH (16:18)
[2024-05-23] MEDS: MORPHINE SULFATE INJ 2 MG/ml SYRG IV PRN (16:24)
--- NOTE | 2024-05-23 19:38 | DVH ---
EXAM: XY CHEST XRAY 1 VIEW TECHNIQUE: Single frontal chest radiograph CLINICAL HISTORY: pre op COMPARISON: None Findings/Impression: Frontal chest radiograph demonstrates no acute osseous or superficial soft tissue abnormalities. The trachea is midline. The cardiac silhouette and mediastinum are within normal limits. No pneumothorax, pleural effusions, or consolidations.
[2024-05-23] MEDS: LORazepam 0.5 MG TAB PO PRN (21:54)
[2024-05-23] MEDS: TEMAZEPAM 15 MG CAP PO PRN (21:54)
[2024-05-24] VITALS (7 sets, daily range): BP systolic 107–116; BP diastolic 60–71; PULSE 62–98; RESP 16–19; TEMP 97.8–98.4; O2SAT 95–100
[2024-05-24 07:35] LABS: Basophils # (auto) 0 10 ^3/uL (0-0.2); Basophils % (auto) 0.4 % (0.0-2.0); Eosinophils # (auto) 0.2 10 ^3/uL (0-0.8); Eosinophils % (auto) 2.6 % (0.0-7.0); Hematocrit 38.6 % (36.0-46.0); Hemoglobin 13.4 g/dL (12.2-16.2); Lymphocytes # (auto) 1.7 10 ^3/uL (0.4-5.4); Lymphocytes % (auto) 23.2 % (10.0-50.0); Mean Corpuscular Hemoglobin 29.9 pg (28.0-32.0); Mean Corpuscular Hgb Conc. 34.6 g/dL (32.0-36.0); Mean Corpuscular Volume 86.2 fL (80.0-100.0); Monocytes # (auto) 0.5 10 ^3/uL (0-1.3); Monocytes % (auto) 7.1 % (0.0-12.0); Neutrophils % (auto) 66.7 % (37.0-80.0); Nucleated Red Blood Cells % 0.1 %; Platelet Count (auto) 249 10^3/uL (140-450); Red Blood Cells 4.47 10^6/uL (4.0-5.20); Red Cell Distribution Width 13.2 % (11.8-14.3); White Blood Cell 7.5 10^3/uL (4.4-10.8)
[2024-05-24 07:45] LABS: Alanine Aminotransferase 116 U/L (7-40); Albumin 4.4 g/dL (3.2-4.8); Alkaline Phosphatase 73 U/L (46-116); Anion Gap 9 (5-15); Aspartate Aminotransferase 44 U/L (13-40); Bilirubin, Total 0.5 mg/dL (0.2-1.0); Carbon Dioxide 24 mmol/L (20-31); Chloride 106 mmol/L (98-107); Glucose 84 mg/dL (74-106); Potassium 3.7 mmol/L (3.5-5.1); Sodium 139 mmol/L (136-145); Total Protein 7.3 g/dL (5.7-8.2)
[2024-05-24 07:47] LABS: BUN/Creatinine Ratio 7.8 (10.0-20.0); Blood Urea Nitrogen < 5 mg/dL (9-23)
[2024-05-24] MEDS ORDERED: HYDR-3682 PO (11:58)
[2024-05-24] MEDS ORDERED: SERT25TA28 PO (11:58)
[2024-05-24] MEDS ORDERED: PRAZ1CAP2 PO (11:58)
[2024-05-24] MEDS ORDERED: hydrOXYzine 25 MG TAB or CAP PO PRN (12:00)
--- NOTE | 2024-05-24 13:20 | DVHPN2 ---
Subjective Patient continues to report having epigastric and right upper quadrant pain. Reviewed: Care Plan, H&P, Medications Changes from previous H/P or p: No Changes General: Per HPI Eyes: No Pain, No Vision change, No Conjunctivae inflammation, No Eyelid inflammation, No Other, No Redness ENT: No Ear pain, No Ear discharge, No Nose pain, No Nose discharge, No Nose congestion, No Mouth pain, No Mouth swelling, No Throat pain, No Throat swelling, No Other Cardiovascular: No Chest Pain, No Palpitations, No Orthopnea, No Paroxysmal Noc. Dyspnea, No Edema, No Lt Headedness, No Other Respiratory: No Cough, No Dry, No Shortness of breath, No SOB with excertion, No Wheezing, No Hemoptysis, No Pleuritic Pain, No Sputum, No Other Gastrointestinal: Nausea, Vomiting, Abdominal Pain; No Diarrhea, No Constipation, No Melena, No Hematochezia, No Other Genitourinary: No Dysuria, No Frequency, No Incontinence, No Hematuria, No Retention, No Other Musculoskeletal: No other, No neck pain, No shoulder pain, No arm pain, No back pain, No hand pain, No leg pain, No foot pain Skin: No Rash, No Lesions, No Jaundice, No Bruising, No Other Objective Vitals Vital Signs Date Time Temp Pulse Resp B/P (MAP) Pulse Ox O2 Delivery O2 Flow Rate FiO2 05/24/24 09:00 98.1 93 16 115/71 (86) 97 98.1 05/24/24 08:11 Room Air* 0 21 Intake/Output Intake and Output 05/24/24 07:00 Intake Total 990 ml Output Total 1 ml Balance 989 ml Intake Oral 890 ml IV Total 100 ml Output Urine Total 1 ml # Voids 4 # Bowel Movements 4 General Appearance: Alert, Oriented X3, Cooperative, mild distress HEENT: Atraumatic, PERRLA Lungs: Clear to auscultation, Normal air movement Cardiovascular: Normal S1, Normal S2 Abdomen: Normal bowel sounds, Soft, Other (Positive Terrell's sign) Genitourinary: No Apparent Abnormalities Musculoskeletal: Normal sensory function, Normal motor function Neuro: Normal gait, Normal speech Psych/Mental Status: Mental status NL, Mood NL (Anxious) Medications Current Medications Medications Dose Ordered Sig/Izzy Route Start Time Stop Time Status Last Admin Dose Admin Lorazepam 0.5 mg Q6HP PRN PO 05/22/24 19:00 05/23/24 21:54 0.5 MG Al Hydrox/Mg Hydrox/Simethicone 30 ml Q6HP PRN PO 05/22/24 19:00 Docusate Sodium 100 mg BIDPRN PRN PO 05/22/24 19:00 Acetaminophen 650 mg Q6HP PRN PO 05/22/24 19:00 Temazepam 15 mg QHSP PRN PO 05/22/24 19:00 05/23/24 21:54 15 MG Acetaminophen/ Hydrocodone Bitart 1 tab Q4HP PRN PO 05/22/24 19:00 05/23/24 07:35 1 TAB Hydromorphone HCl 0.5 mg Q4HP PRN IV 05/23/24 08:00 Hold Ondansetron HCl 4 mg Q4HP PRN IV 05/22/24 19:00 Metronidazole 100 ml @ 100 mls/hr Q8HR IV 05/22/24 19:11 05/24/24 06:32 100 MLS/HR Potassium Chloride/Dextrose/ Sod Cl 1,000 ml @ 100 mls/hr Q10H IV 05/23/24 15:15 05/24/24 12:18 100 MLS/HR Morphine Sulfate 2 mg Q4HPRN PRN IV 05/23/24 15:15 05/23/24 22:00 2 MG Prazosin HCl 1 mg QHSP PO 05/24/24 22:00 Sertraline HCl 25 mg DAILY PO 05/25/24 10:00 Hydroxyzine Pamoate 25 mg Q6HP PRN PO 05/24/24 12:00 Laboratory Results Laboratory Tests 05/24/24 05:47 Chemistry Test 05/24/24 05:47 Albumin 4.4 g/dL (3.2-4.8) Calcium Level 10.0 mg/dL (8.7-10.4) Total Protein 7.3 g/dL (5.7-8.2) LFT Test 05/24/24 05:47 Alanine Aminotransferase (ALT) 116 U/L (7-40) H Alkaline Phosphatase 73 U/L (46-116) Aspartate Amino Transferase (AST) 44 U/L (13-40) H Total Bilirubin 0.5 mg/dL (0.2-1.0) Labs and/or images reviewed: Labs reviewed by me, Image(s) reviewed by me Assessment/Plan Assessment/Plan Impression: -cholelithiasis, probable cholecystitis -obesity Plan: Events: LFTs improved. Tolerating clear liquid diet. -restart home antidepressant, antianxiety medications -continue clear liquid diet -surgical consultation: Plans for cholecystectomy on 05/25/2024 -continue antibiotic therapy with Flagyl Rocephin -pain management -PUD, DVT prophylaxis -plans for surgery in am Total time spent with patient discussing and formulating plan of care: 35 minutes. This medical document was created using an electronic medical record system with [employer] dictation system. Although this document has been carefully reviewed, there may still be some phonetic and typographical errors. These areas are purely typographical due to imperfections of the software programs, and do not reflect any compromise in the patient's medical care. Plan discussed with: Patient, Other (RN) My Orders Orders - LUZMARIA ROSA NP Procedure Category Date Status Time D5w/Sod Chl 0.45%/Kcl PHA 05/23/24 In Process 20meq 15:15 Chest Xray 1 View XY 05/23/24 Resulted 15:10 Morphine Sulfate PHA 05/23/24 In Process Injection 15:15 Prazosin Hcl Capsule PHA 05/24/24 In Process (Minipres Capsule) 22:00 Sertraline Hcl PHA 05/25/24 In Process (Zoloft) 10:00 Hydroxyzine Oral PHA 05/24/24 In Process (Vistaril Oral) 12:00 Date of Service: May 24, 2024 Billing Provider: LUZMARIA ROSA NP Common Visit Codes: [id number] INP/OBS CARE(HIGH) LUZMARIA ROSA NP May 24, 2024 13:20
[2024-05-24] MEDS: PRAZOSIN HCL 1 MG CAP PO SCH (22:44)
[2024-05-25] VITALS (8 sets, daily range): BP systolic 95–118; BP diastolic 61–74; PULSE 70–88; RESP 12–20; TEMP 97.8–98.9; O2SAT 88–98
--- NOTE | 2024-05-25 09:30 | DVHPN2 ---
Subjective Patient continues to report having epigastric and right upper quadrant pain. Reviewed: Care Plan, H&P, Medications Changes from previous H/P or p: No Changes General: Per HPI Eyes: No Pain, No Vision change, No Conjunctivae inflammation, No Eyelid inflammation, No Other, No Redness ENT: No Ear pain, No Ear discharge, No Nose pain, No Nose discharge, No Nose congestion, No Mouth pain, No Mouth swelling, No Throat pain, No Throat swelling, No Other Cardiovascular: No Chest Pain, No Palpitations, No Orthopnea, No Paroxysmal Noc. Dyspnea, No Edema, No Lt Headedness, No Other Respiratory: No Cough, No Dry, No Shortness of breath, No SOB with excertion, No Wheezing, No Hemoptysis, No Pleuritic Pain, No Sputum, No Other Gastrointestinal: Nausea, Vomiting, Abdominal Pain; No Diarrhea, No Constipation, No Melena, No Hematochezia, No Other Genitourinary: No Dysuria, No Frequency, No Incontinence, No Hematuria, No Retention, No Other Musculoskeletal: No other, No neck pain, No shoulder pain, No arm pain, No back pain, No hand pain, No leg pain, No foot pain Skin: No Rash, No Lesions, No Jaundice, No Bruising, No Other Objective Vitals Vital Signs Date Time Temp Pulse Resp B/P (MAP) Pulse Ox O2 Delivery O2 Flow Rate FiO2 05/25/24 08:58 97.8 70 16 95/63 (74) 96 97.8 05/24/24 20:00 Room Air* 0 21 Intake/Output Intake and Output 05/25/24 07:00 Intake Total 2080 ml Balance 2080 ml Intake Oral 1780 ml IV Total 300 ml # Voids 5 # Bowel Movements 1 General Appearance: Alert, Oriented X3, Cooperative, mild distress HEENT: Atraumatic, PERRLA Lungs: Clear to auscultation, Normal air movement Cardiovascular: Normal S1, Normal S2 Abdomen: Normal bowel sounds, Soft, Other (Positive Trerell's sign) Genitourinary: No Apparent Abnormalities Musculoskeletal: Normal sensory function, Normal motor function Neuro: Normal gait, Normal speech Psych/Mental Status: Mental status NL, Mood NL (Anxious) Medications Current Medications Medications Dose Ordered Sig/Izzy Route Start Time Stop Time Status Last Admin Dose Admin Lorazepam 0.5 mg Q6HP PRN PO 05/22/24 19:00 12/3/24 22:37 0.5 MG Al Hydrox/Mg Hydrox/Simethicone 30 ml Q6HP PRN PO 05/22/24 19:00 Docusate Sodium 100 mg BIDPRN PRN PO 05/22/24 19:00 Acetaminophen 650 mg Q6HP PRN PO 05/22/24 19:00 Temazepam 15 mg QHSP PRN PO 05/22/24 19:00 05/24/24 22:37 15 MG Acetaminophen/ Hydrocodone Bitart 1 tab Q4HP PRN PO 05/22/24 19:00 05/23/24 07:35 1 TAB Hydromorphone HCl 0.5 mg Q4HP PRN IV 05/23/24 08:00 Hold Ondansetron HCl 4 mg Q4HP PRN IV 05/22/24 19:00 Metronidazole 100 ml @ 100 mls/hr Q8HR IV 05/22/24 19:11 05/25/24 05:49 100 MLS/HR Potassium Chloride/Dextrose/ Sod Cl 1,000 ml @ 100 mls/hr Q10H IV 05/23/24 15:15 05/25/24 06:10 100 MLS/HR Morphine Sulfate 2 mg Q4HPRN PRN IV 05/23/24 15:15 05/24/24 19:47 2 MG Prazosin HCl 1 mg QHSP PO 05/24/24 22:00 05/24/24 22:44 1 MG Sertraline HCl 25 mg DAILY PO 05/25/24 10:00 Hydroxyzine Pamoate 25 mg Q6HP PRN PO 05/24/24 12:00 Laboratory Results Laboratory Tests 05/24/24 05:47 Labs and/or images reviewed: Labs reviewed by me, Image(s) reviewed by me Assessment/Plan Assessment/Plan Impression: -cholelithiasis, probable cholecystitis -obesity Plan: Events: No events overnight. -Continue antidepressant, antianxiety medications -NPO -surgical consultation: Surgery today -continue antibiotic therapy with Flagyl Rocephin -pain management -PUD, DVT prophylaxis Repeat labs in am Total time spent with patient discussing and formulating plan of care: 35 minutes. This medical document was created using an electronic medical record system with [employer] system. Although this document has been carefully reviewed, there may still be some phonetic and typographical errors. These areas are purely typographical due to imperfections of the software programs, and do not reflect any compromise in the patient's medical care. Plan discussed with: Patient, Other (RN) My Orders Orders - LUZMARIA ROSA NP Procedure Category Date Status Time Prazosin Hcl Capsule PHA 05/24/24 In Process (Minipres Capsule) 22:00 Sertraline Hcl PHA 05/25/24 In Process (Zoloft) 10:00 Hydroxyzine Oral PHA 05/24/24 In Process (Vistaril Oral) 12:00 Date of Service: May 25, 2024 Billing Provider: LUZMARIA ROSA NP Common Visit Codes: [id number] INP/OBS CARE(HIGH) LUZMARIA ROSA NP May 25, 2024 09:30
[2024-05-25] MEDS ORDERED: ROCURONIUM 10MG/ML 10ML VIAL IV ONE (10:37)
[2024-05-25] MEDS ORDERED: MIDAZOLAM HCL 2MG/2ML 2ml VIAL (1mg/ml) ONE (10:37)
[2024-05-25] MEDS ORDERED: LIDOCAINE 1% INJ PF 5ML AMP ONE (10:37)
[2024-05-25] MEDS ORDERED: PROPOFOL 10 MG/ML 20 ML IV ONE (10:37)
[2024-05-25] MEDS ORDERED: MORPHINE SULF PF 5 MG/10 ML VIAL ONE ×2 (10:56→11:23)
[2024-05-25] MEDS ORDERED: DexAMETHasone SOD PHOS 10MG/1ML VIAL INJ ONE (10:57)
[2024-05-25] MEDS ORDERED: ONDANSETRON HCL 4 MG/2 ML VIAL ONE (10:58)
[2024-05-25] MEDS ORDERED: KETOROLAC TROMETH 30 MG/ML 1ML VIAL ONE (10:58)
[2024-05-25] MEDS ORDERED: SUGAMMADEX 200mg/2ml Vial (100MG/ML) IV ONE (11:14)
[2024-05-25] MEDS: BUPIVACAINE 0.5% MPF INJ 30ML SDV IJ ONE (11:20)
[2024-05-25] MEDS ORDERED: HYDROmorphone HCL 2 MG/ML VL/or syr ONE (11:26)
[2024-05-25] MEDS ORDERED: ONDANSETRON HCL 4 MG/2 ML VIAL IV PRN ×2 (11:30)
[2024-05-25] MEDS: SERTRALINE HCL 50 MG TAB PO SCH (13:04)
[2024-05-25] MEDS: D5W/SOD CHL 0.45%/KCL 20MEQ 1,000 ML IV SCH (13:06)
--- NOTE | 2024-05-25 13:33 | DVHOP ---
DATE OF SURGERY: 05/25/2024 PREOPERATIVE DIAGNOSES: Cholelithiasis, cholecystitis. POSTOPERATIVE DIAGNOSES: Cholelithiasis, cholecystitis. SURGEON: Brenden Briseno MD FOOD AND BEVERAGE COORDINATOR: Nathen Castanon NP ANESTHESIA: General endotracheal. ANESTHESIOLOGIST: Dr. Jalloh. PROCEDURE: Laparoscopy, laparoscopic cholecystectomy. DESCRIPTION OF PROCEDURE: Under general endotracheal anesthesia, with the patient's skin prepped and draped, a supraumbilical incision was made and Veress needle inserted by the hanging drop technique to establish pneumoperitoneum to 15 mmHg pressure by insufflation with carbon dioxide. With the abdomen fully distended, the needle was removed and replaced with a 5 mm trocar port through which a 0-degree viewing laparoscope was inserted under direct vision, additional 5 and 10 mm ports inserted through the right anterior axillary line at the level of the umbilicus and through the midline subxiphoid skin respectively. Instrumentation was introduced. Laparoscopy was hampered by the patient's morbid obesity; however, no obvious unexpected pathology was encountered. The gallbladder was small, contracted and affected by acute and chronic cholecystitis. It was recessed underneath the liver and was quite difficult to manipulate. The cystic duct and cystic artery were identified, circumferentially dissected and skeletonized traced into the hepaticocystic triangle so as to minimize the potential for inadvertent injury to the common bile duct. The cystic duct and cystic artery were then divided between metallic clips close to the gallbladder, again avoiding any potential inadvertent injury to the common bile duct. Following division of the cystic duct and cystic artery, the gallbladder resected from its liver bed by electrocautery and traction. The fully mobilized gallbladder was removed from the peritoneal cavity, subhepatic space was irrigated, irrigant was aspirated. Hemostasis was meticulously inspected and found to be complete. At the termination of bleeding to the operation, there was no bleeding from either the liver bed or from the port sites. Instrumentation was withdrawn. Pneumoperitoneum was evacuated. Fascial defect closed using 0 Vicryl and the patient's skin approximated using metallic skin tiffanie. The patient remained stable throughout the procedure, left the operating room following an accurate needle and sponge count. Her father, Juan was thoroughly informed at [phone]. Brenden Briseno MD PF TID: [id number] RECEIPT: [id number]
[2024-05-25] MEDS: ceFAZolin 2 GM/D5W50ml 50 ML IV SCH (15:43)
[2024-05-25] MEDS: LIDOCAINE W/ EPINEPHRINE 2% INJ 20ML VIAL ONE (15:48)
[2024-05-25] MEDS: ceFAZolin 2 GM/D5W100ml 100 ML IV ONE (15:49)
[2024-05-25] MEDS: BUPIVACAINE HCL 50 ML ONE (15:49)
[2024-05-26 01:00] VITALS: BP 108/62; PULSE 107; RESP 18; TEMP 98.4; O2SAT 94
[2024-05-26 05:19] VITALS: BP 102/55; PULSE 89; RESP 18; TEMP 98.4; O2SAT 95
[2024-05-26 06:22] LABS: Basophils # (auto) 0 10 ^3/uL (0-0.2); Basophils % (auto) 0.1 % (0.0-2.0); Eosinophils # (auto) 0 10 ^3/uL (0-0.8); Eosinophils % (auto) 0.5 % (0.0-7.0); Hematocrit 36.1 % (36.0-46.0); Hemoglobin 12.8 g/dL (12.2-16.2); Lymphocytes # (auto) 1.9 10 ^3/uL (0.4-5.4); Lymphocytes % (auto) 21.1 % (10.0-50.0); Mean Corpuscular Hemoglobin 30.3 pg (28.0-32.0); Mean Corpuscular Hgb Conc. 35.5 g/dL (32.0-36.0); Mean Corpuscular Volume 85.3 fL (80.0-100.0); Monocytes # (auto) 0.7 10 ^3/uL (0-1.3); Monocytes % (auto) 7.6 % (0.0-12.0); Neutrophils # (auto) 6.4 10 ^3/uL (1.6-8.6); Neutrophils % (auto) 70.7 % (37.0-80.0); Nucleated Red Blood Cells % 0.1 %; Platelet Count (auto) 244 10^3/uL (140-450); Red Blood Cells 4.23 10^6/uL (4.0-5.20); Red Cell Distribution Width 13.2 % (11.8-14.3); White Blood Cell 9.1 10^3/uL (4.4-10.8)
[2024-05-26 06:44] LABS: Albumin 4.2 g/dL (3.2-4.8); Alkaline Phosphatase 59 U/L (46-116); Anion Gap 10 (5-15); Aspartate Aminotransferase 25 U/L (13-40); Bilirubin, Total 0.4 mg/dL (0.2-1.0); Carbon Dioxide 23 mmol/L (20-31); Chloride 106 mmol/L (98-107); Potassium 3.5 mmol/L (3.5-5.1); Sodium 139 mmol/L (136-145); Total Protein 6.8 g/dL (5.7-8.2)
[2024-05-26 06:47] LABS: Alanine Aminotransferase 64 U/L (7-40); BUN/Creatinine Ratio 7.4 (10.0-20.0); Blood Urea Nitrogen < 5 mg/dL (9-23); Calcium 8.1 mg/dL (8.7-10.4); Glucose 111 mg/dL (74-106)
[2024-05-26 09:00] VITALS: BP 115/70; PULSE 87; RESP 12; TEMP 98.5; O2SAT 94
[2024-05-26] MEDS: PANTOPRAZOLE 40 MG/10 ML VIAL INJ IV SCH (10:04)
--- NOTE | 2024-05-26 10:18 | DVHPN2 ---
Progress Note Date Seen: May 26, 2024 Medical Necessity Reason Pt with a Central, PICC or Fol: No Objective vital signs Vital Sign Date Time Temp Pulse Resp B/P (MAP) Pulse Ox O2 Delivery O2 Flow Rate FiO2 05/26/24 06:48 82 18 125/58 05/26/24 05:19 98.4 95 98.4 05/25/24 20:00 Room Air* 0 21 Total Intake and Output 05/25/24 05/25/24 05/26/24 15:00 23:00 07:00 Intake Total 100 ml 1100 ml 1650 ml Balance 100 ml 1100 ml 1650 ml medications Current Medications Medications Dose Ordered Sig/Izzy Route Start Time Stop Time Status Last Admin Dose Admin Lorazepam 0.5 mg Q6HP PRN PO 05/22/24 19:00 05/24/24 22:37 0.5 MG Al Hydrox/Mg Hydrox/Simethicone 30 ml Q6HP PRN PO 05/22/24 19:00 Docusate Sodium 100 mg BIDPRN PRN PO 05/22/24 19:00 Acetaminophen 650 mg Q6HP PRN PO 05/22/24 19:00 Temazepam 15 mg QHSP PRN PO 05/22/24 19:00 05/24/24 22:37 15 MG Acetaminophen/ Hydrocodone Bitart 1 tab Q4HP PRN PO 05/22/24 19:00 05/25/24 18:06 1 TAB Hydromorphone HCl 0.5 mg Q4HP PRN IV 05/23/24 08:00 Hold Metronidazole 100 ml @ 100 mls/hr Q8HR IV 05/22/24 19:11 05/26/24 05:37 100 MLS/HR Morphine Sulfate 2 mg Q4HPRN PRN IV 05/23/24 15:15 05/26/24 06:48 2 MG Prazosin HCl 1 mg QHSP PO 05/24/24 22:00 05/25/24 21:26 1 MG Sertraline HCl 25 mg DAILY PO 05/25/24 10:00 05/26/24 10:04 25 MG Hydroxyzine Pamoate 25 mg Q6HP PRN PO 05/24/24 12:00 Potassium Chloride/Dextrose/ Sod Cl 1,000 ml @ 120 mls/hr Q8H20M IV 05/25/24 11:30 05/26/24 05:30 120 MLS/HR Ondansetron HCl 4 mg Q4HPRN PRN IV 05/25/24 11:30 UNV Ondansetron HCl 4 mg Q4HPRN PRN IV 05/25/24 11:30 Pantoprazole Sodium 40 mg DAILY IV 05/26/24 10:00 05/26/24 10:04 40 MG Cefazolin Sodium/ Dextrose 50 ml @ 50 mls/hr Q8HR IV 05/25/24 14:00 05/26/24 05:37 50 MLS/HR laboratory and microbiology Laboratory Tests 05/26/24 05:33 Test 05/26/24 05:33 Range/Units Serum Glucose 111 H 74-106 mg/dL Problem List/Assessment/Plan Problem List/Assessment/Plan 05/26/24 doing well, labs ok, wounds clean and well approximated, abdomen appropriately tender, OK to advance diet and DC home this PM, to see me in two weeks. May shower after 72 hours Plan discussed with: Patient Dietary Evaluation Review Comments: Monitor PO intake when back to diet Expected Outcomes/Goals: gradual wt loss YOSELIN ROMANO MD May 26, 2024 10:18
--- NOTE | 2024-05-26 10:25 | DVHDS2 ---
Discharge Summary Date of Admission May 22, 2024 at 18:48 Date of Discharge: May 26, 2024 Admitting Diagnosis Acute cholecystitis Labs/Diagnostic Data: Laboratory Results Test 05/26/24 05:33 05/23/24 11:20 05/22/24 14:21 White Blood Count 9.1 10^3/uL (4.4-10.8) Red Blood Count 4.23 10^6/uL (4.0-5.20) Hemoglobin 12.8 g/dL (12.2-16.2) Hematocrit 36.1 % (36.0-46.0) Mean Corpuscular Volume 85.3 fL (80.0-100.0) Mean Corpuscular Hemoglobin 30.3 pg (28.0-32.0) Mean Corpuscular Hemoglobin Concent 35.5 g/dL (32.0-36.0) Red Cell Distribution Width 13.2 % (11.8-14.3) Platelet Count 244 10^3/uL (140-450) Mean Platelet Volume 7.7 fL (6.9-10.8) Neutrophils (%) (Auto) 70.7 % (37.0-80.0) Lymphocytes (%) (Auto) 21.1 % (10.0-50.0) Monocytes (%) (Auto) 7.6 % (0.0-12.0) Eosinophils (%) (Auto) 0.5 % (0.0-7.0) Basophils (%) (Auto) 0.1 % (0.0-2.0) Neutrophils # (Auto) 6.4 10 ^3/uL (1.6-8.6) Lymphocytes # (Auto) 1.9 10 ^3/uL (0.4-5.4) Monocytes # (Auto) 0.7 10 ^3/uL (0-1.3) Eosinophils # (Auto) 0 10 ^3/uL (0-0.8) Basophils # (Auto) 0 10 ^3/uL (0-0.2) Nucleated Red Blood Cells 0.1 % Sodium Level 139 mmol/L (136-145) Potassium Level 3.5 mmol/L (3.5-5.1) Chloride Level 106 mmol/L (98-107) Carbon Dioxide Level 23 mmol/L (20-31) Anion Gap 10 (5-15) Blood Urea Nitrogen < 5 mg/dL (9-23) Creatinine 0.68 mg/dL (0.550-1.02) Glomerular Filtration Rate Calc 126 mL/min (>90) BUN/Creatinine Ratio 7.4 (10.0-20.0) Serum Glucose 111 mg/dL (74-106) Calcium Level 8.1 mg/dL (8.7-10.4) Total Bilirubin 0.4 mg/dL (0.2-1.0) Aspartate Amino Transferase (AST) 25 U/L (13-40) Alanine Aminotransferase (ALT) 64 U/L (7-40) Alkaline Phosphatase 59 U/L (46-116) Total Protein 6.8 g/dL (5.7-8.2) Albumin 4.2 g/dL (3.2-4.8) Prothrombin Time 10.9 sec (9.3-11.8) Prothrombin Time INR 1.03 (0.9-1.15) Activated Partial Thromboplast Time 30.7 SEC (24.5-34.5) Beta HCG, Quantitative 1.8 mIU/mL (1.5-4.2) Lipase 50 U/L (12-53) Other Laboratory Tests 05/26/24 05:33 Brief Hx & Hospital Course: History of Present Illness 23-year-old obese patient no apparent history other than anxiety depression and gallstones comes to the ED with right upper quadrant pain for the past week pain was associated with increased right upper abdominal pressure nausea and vomiting and difficulty holding food down patient was initially seen in the ED ER yesterday having acute pain left inguinal home came back today with worsening upper bradycardia and pain patient was recommended by ED for further evaluation and management care. Course of hospitalization: Patient was started on IV antibiotic therapy with Rocephin and Flagyl. Home a ntidepressants and anxiolytics for restarted. Surgical consultation was placed. Patient had laparoscopic cholecystectomy yesterday. Postoperatively the patient reports she was able to tolerate oral intake, has been ambulating, and passing gas. Patient was cleared for discharge. Patient will follow up with General surgery in 1-2 weeks, and her PCP in 1-2 weeks. She will be continued on antibiotic therapy with Augmentin 500 mg p.o. b.i.d. x three days. She will be provided tramadol as needed for [id number] pain. She will continue all previous home medications. Physical examination General: Alert and Oriented x3. No acute distress. Well-nourished. Obese Eyes: EOMI. Anicteric. HENT: Moist mucous membranes. Lungs: Clear to auscultation bilaterally. No accessory muscle use. Cardiovascular: Regular rate and rhythm. No murmur. No JVD. Abdomen: Soft, non-tender and non-distended. No palpable masses. Surgical puncture sites dry and intact Extremities: No edema. Non-tender. Skin: No rashes or lesions. Warm. Neurologic: No focal neurological deficits. CN II-XII grossly intact, but not individually tested. Psychiatric: Cooperative. Appropriate mood and affect. Total time spent with patient discussing and formulating plan of care: 35 minutes. This medical document was created using an electronic medical record system with [employer] system. Although this document has been carefully reviewed, there may still be some phonetic and typographical errors. These areas are purely typographical due to imperfections of the software programs, and do not reflect any compromise in the patient's medical care. Consults/Reason for consult Surgery: Cholecystitis Operations or Procedures 05/25/2024: Laparoscopic cholecystectomy Condition at Discharge: Fair Final Diagnosis/Problems List Acute Cholecystitis Secondary Diagnosis: -status post cholecystectomy -obesity -anxiety -depression Discharge Disposition: Home Discharge Instruct/Medications Diet: Regular Activity: No Restrictions, As Tolerated Follow Up/Referral: Follow up with Dr. Briseno in 1-2 weeks Medications: Augmentin 500 mg p.o. b.i.d. x3 days Tramadol 50 mg q.8 hours as needed for [id number] pain 36 Discharge Statement: "Patient was advised to return to the ER or call 911 if any headaches, dizziness, shortness of breath, chest pain, abdominal pain, bleeding, fevers, or worsening of medical condition. Patient was counseled about treatment plan, medications, possible side effects, patientverbalized understanding. All questions were answered to the best of my ability. This discharge took greater then 30 minutes in planning, reviewing documentation, counseling the patient, and discussing with other team members." ASSESSMENT ASSESSMENT Assessment Acute Cholecystitis Date of Service: May 26, 2024 Billing Provider: LUZMARIA ROSA NP Common Visit Codes: 28427-TBQ/OBS DISCH DAY >30min LUZMARIA ROSA NP May 26, 2024 10:25
[2024-05-26] MEDS ORDERED: TRAM50TA2 PO (10:26)
[2024-05-26] MEDS ORDERED: AMOX500T86 PO (10:26)
[2024-05-26 10:40] VITALS: BP 110/68; TEMP 36.9
== END 2024-05-26 12:20 | disposition home or self-care (01) | DRG 419 ==
LOC: EDBD 13:22 → ER 13:22 → OVERFLOW 18:48 → EAST 05-23 17:00
PROVIDERS: ADMIT Hospitalist; ATTEND Nurse Practitioner Acute Care
PROC: 0FT44ZZ Resection of Gallbladder, Percutaneous Endoscopic Approach (ICD-10-PCS; principal; 2024-05-25 10:43)
DX: K80.12 Calculus of gallbladder with acute and chronic cholecystitis without obstruction (principal); F32.A Depression, unspecified; F41.9 Anxiety disorder, unspecified; E66.01 Morbid (severe) obesity due to excess calories; Z68.32 Body mass index [BMI] 32.0-32.9, adult; Z80.8 Family history of malignant neoplasm of other organs or systems; Z79.899 Other long term (current) drug therapy
CPT/HCPCS: 36415; 71045; 80053; 83690; 84702; 85025; 85610; 85730; 86850; 86900; 86901; 99291; G0378; J1100; J1885; J2250; J2405; J2470; J2704; J3490